=== PATIENT | male | born 1960 | race Caucasian/White ===

== ENCOUNTER 2020-05-18 11:38 | Inpatient (IN) | payer MEDICARE, MEDICAID ==
[2020-05-18] VITALS (7 sets, daily range): BP systolic 105–132; BP diastolic 69–95
[~2020-05-18] VITALS: Ht 175.3 cm; Wt 71.9 kg
[2020-05-18] MEDS ORDERED: IV NORMAL SALINE 1000ML BAG 1,000 ML IV SCH (11:49)
[2020-05-18] MEDS ORDERED: fentaNYL PF VIAL 100 MCG/2 ML VIAL IVP ONE (12:00)
[2020-05-18] MEDS ORDERED: ONDANSETRON PF 4 MG/2 ML VIAL. IVP ONE (12:00)
[2020-05-18] MEDS ORDERED: FAMOTIDINE 20 MG/2 ML VIAL IVP ONE (12:00)
--- NOTE | 2020-05-18 12:03 | PHYS DOC ---
General Adult EDM: Chief Complaint: ABDOMINAL PAIN HPI: HPI: Patient is a 59 year old male who presents with 2 weeks of off and on left chest pain, generalized sharon pain, vomiting. Patient is currently homeless. He states that he was living in an apartment but the doors are locked and he could not get in. He states he tried climbing up the side of the wall a month ago to get in and it was raining and he slipped and he fell and broke his right lower leg. He states he went to the hospital does not remember where he went and they had him in a cast and then he saw orthopedic doctor that took him out of the cast and put him in a walking boot and told him he was going to be in th at for another 2 to 3 months. Patient states eating given any pain medication and he is also having leg pain. He states that he does have crutches that he uses at times. His right lower ankle is 2-3+ swollen. Skin is pink warm and dry cap refill is less than 3 seconds. No calf tenderness with palpation. He states he is tired of being in pain and feeling sick and he wants to . Patient states he is suicidal and he has a plan of jumping off of a building or he has tried to run in front of cars in the past. When patient is asked about the quality of his pain he states it "just hurts". Patient states he has a frontal headache that comes and goes states it is throbbing. He is rating all of his pain a 10 out of 10 and denies radiation or anything making it worse or better. Patient is placed on one-to-one observation. When asked about his past medical history he states he supposed to be on medications but does not know what medications and what for. At this time patient denies visual changes, numbness or tingling, dizziness, syncope, neck pain, back pain, diarrhea, fever, shortness of breath, cough, focal weakness. Patient is moving all extremities and is alert and oriented x4. Review of Systems: Review of Systems: Constitutional: Denies fever or chills. [] Eyes: Denies change in visual acuity. [] HENT: Denies nasal congestion or sore throat. [] Respiratory: Denies cough or shortness of breath. [] Cardiovascular: Denies chest pain or edema. [] GI: Generalized abdominal pain, nausea, vomiting, denies bloody stools or diarrhea. [] : Denies dysuria. [] Musculoskeletal: Denies back pain. Right lower leg joint pain. [] Integument: Denies rash. [] Neurologic: Frontal headache, denies focal weakness or sensory changes. [] Endocrine: Denies polyuria or polydipsia. [] Lymphatic: Denies swollen glands. [] Psychiatric: Denies depression or anxiety. Suicidal ideation. [] Heart Score: HEART Score for Chest Pain: HEART Score for Chest Pain Response (Comments) Value History Slighlty/Non-Suspicious 0 ECG Normal 0 Age >45 - < 65 1 Risk Factors 1 or 2 Risk Factors 1 Troponin < Normal Limit 0 Total 2 Risk Factors: Risk Factors: DM, Current or recent (<one month) smoker, HTN, HLP, family history of CAD, obesity. Risk Scores: Score 0 - 3: 2.5% MACE over next 6 weeks - Discharge Home Score 4 - 6: 20.3% MACE over next 6 weeks - Admit for Clinical Observation Score 7 - 10: 72.7% MACE over next 6 weeks - Early Invasive Strategies Physical Exam: PE: Constitutional: Well developed, well nourished, no acute distress, non-toxic melecio earance. [] HENT: Normocephalic, atraumatic, bilateral external ears normal, oropharynx moist, no oral exudates, nose normal. [] Eyes: PERRLA, EOMI, conjunctiva normal, no discharge. [] Neck: Normal range of motion, no tenderness, supple, no stridor. [] Cardiovascular:Heart rate regular rhythm, no murmur [] Lungs & Thorax: Bilateral breath sounds clear to auscultation [] Abdomen: Bowel sounds normal, soft, no tenderness, no masses, no pulsatile masses. [] Skin: Warm, dry, no erythema, no rash. [] Back: No tenderness, no CVA tenderness. [] Extremities: No tenderness, no cyanosis, no clubbing, right ankle ROM not intact, right lower ankle 2-3+ edema. [] Neurologic: Alert and oriented X 3, normal motor function, normal sensory function, no focal deficits noted. [] Psychologic: Affect normal, judgement normal, mood normal. [] EKG: EK and read by Dr. Muhammad as sinus rhythm and no STEMI [] Radiology/Procedures: Radiology/Procedures: [] Impression: [facility] [address] [place] [address] IMAGING REPORT Signed PATIENT: LUCÍA MARIE ACCOUNT: [id number] : 1960 LOCATION: ER AGE: 59 SEX: M EXAM STATUS: REG ER ORD. PHYSICIAN: МАРИНА MEHTA APRN REASON: HEADACHE PROCEDURE: CT HEAD WO CONTRAST CT HEAD WO CONTRAST History:Headache Comparison: None. Technique: Noncontrast CT imaging was performed of the head. Exposure: One or more of the following individualized dose reduction techniques were utilized for this examination: 1. Automated exposure control 2. Adjustment of the mA and/or kV according to patient size 3. Use of iterative reconstruction technique. Findings: There has been left frontal parietal temporal craniotomy. There is thin hyperdense subdural hematoma on the left greatest in the frontal region about 3 to 4 mm maximal thickness. There is area of lower density of the left temporal parenchyma in the left middle cranial fossa. Ventricular size is within normal limits. There is no midline shift. There is mild ill-defined low-density such as of the bilateral parietal white matter. The visualized paranasal sinuses and mastoid air cells are overall aerated. Impression: 1. There is small acute/subacute subdural hematoma greatest in the left frontal region. 2. There is area of lower density of the left temporal lobe, may be sequela of previous at least subacute if not chronic infarct although other pathology in this region not excluded. 3. Mild ill-defined low-density of the supratentorial parenchyma such as of the parietal white matter is nonspecific, may be sequela of chronic microvascular ischemic disease. 4. There has been left craniotomy. Critical results were discussed with МАРИНА MEHTA at 05/18/2020 1:22 PM. Electronically signed by: David Carranza MD (05/18/2020 1:23 PM) [id number] DICTATED and SIGNED BY: DAVID CARRANZA MD DATE: 05/18/20 1323 [facility] [address] [place], [place] [id number] IMAGING REPORT Signed PATIENT: LUCÍA MARIE ACCOUNT: [id number] : 1960 LOCATION: ER AGE: 59 SEX: M EXAM STATUS: REG ER ORD. PHYSICIAN: МАРИНА MEHTA APRN REASON: abd pain, vomiting PROCEDURE: CT ABD PELV W/ IV CONTRST ONLY CT scan abdomen and pelvis with contrast 05/15/2020 CLINICAL HISTORY: Abdominal pain and vomiting. TECHNIQUE: After the intravenous administration of 75 cc of Omnipaque 300 only, contiguous, 5 mm axial sections were obtained through abdomen and pelvis. One or more of the following individualized dose reduction techniques were utilized for this study: 1. Automated exposure control. 2. Adjustment of the mA and/or kV according to patient size. 3. Use of iterative reconstruction technique. FINDINGS: Images through the lung bases demonstrate minimal dependent subsegmental atelectasis bilaterally. The liver, spleen, pancreas, adrenal glands and kidneys are within normal limits. Atherosclerotic calcification of the abdominal aorta is seen. The abdominal aorta tapers normally. The gallbladder is well-distended. No free fluid or free air is seen within the abdomen. There is no evidence of bowel obstruction. The appendix is well-visualized and is within normal limits. Images through the pelvis demonstrate the urinary bladder distended with urine. Calcifications are seen within the pelvis consistent with phleboliths. No free fluid is seen. Very mild S-shaped curvature of the thoracolumbar spine is seen. Degenerative changes are seen involving the lower thoracic and throughout the lumbar spine along with both hips. IMPRESSION: No acute abnormality is seen. Electronically signed by: Diogo Leal MD (05/18/2020 1:28 PM) [id number] DICTATED and SIGNED BY: DIOGO LEAL MD DATE: 05/18/20 1328 [facility] [address] [place] [address] IMAGING REPORT Signed PATIENT: LUCÍA MARIE ACCOUNT: [id number] : 1960 LOCATION: ER AGE: 59 SEX: M EXAM STATUS: REG ER ORD. PHYSICIAN: МАРИНА MEHTA APRN REASON: pain PROCEDURE: TIBIA FIBULA RIGHT ANKLE RIGHT 3V, FOOT RIGHT 3V, TIBIA FIBULA RIGHT History: Reason: pain / Spl. Instructions: / History: Technique: 2 views right tibia and fibula, 3 views right ankle and 3 views right foot Comparison: None. Findings: Mild knee degenerative changes. Normal alignment of the tibia and fibula. No fracture. Normal alignment of the ankle. Symmetric ankle mortise. Ankle soft tissue swelling. Ankle joint effusion. Comminuted fracture of the calcaneus with suggestion of periosteal reaction, may indicate healing. Plantar calcaneal spur. Otherwise, normal alignment of the foot. First metatarsal head bony bunion formation. Prominence of the anterior talus, can be seen with anterior ankle impingement morphology. Impression: 1. Comminuted right calcaneus fracture with regions of periosteal reaction, may indicate subacute fracture. CT can further evaluate as clinically warranted. 2. Ankle soft tissue swelling. Electronically signed by: Brandon Varghese DO (05/18/2020 1:43 PM) [id number] DICTATED and SIGNED BY: BRANDON VARGHESE DO DATE: 05/18/20 1343 [facility] [address] [place], [place] [id number] IMAGING REPORT Signed PATIENT: LUCÍA MARIE ACCOUNT: [id number] : 1960 LOCATION: ER AGE: 59 SEX: M EXAM STATUS: REG ER ORD. PHYSICIAN: МАРИНА MEHTA APRN REASON: chest pain PROCEDURE: PORTABLE CHEST 1V PORTABLE CHEST 1V History: Reason: chest pain / Spl. Instructions: / History: Comparison: None. Findings: No consolidation or pleural effusion. Normal heart size. No pneumothorax. Left upper lung calcified nodule, likely prior granulomatous disease. Internal fixation left proximal humerus fracture. Impression: 1. No acute cardiopulmonary process. Electronically signed by: Brandon Varghese DO (05/18/2020 1:32 PM) [id number] DICTATED and SIGNED BY: BRANDON VARGHESE DO DATE: 05/18/20 1332 Course & Med Decision Making: Course & Med Decision Making Pertinent Labs and Imaging studies reviewed. (See chart for details) See HPI. Abdomen is soft and nontender. Skin pink warm and dry. Afebrile. Vital signs within normal limits. Dr Gonzales nurse proactitioner Pamela states the patient should go to ICU with Neuro Checks and NPO and she will order a re-scan for in the morning. After giving CT head results I went into the room and asked the patient again if he has fallen recently. He states no. He then states well maybe I did fall and hit my head 2 weeks ago but I cannot remember. Patient is a very poor historian. Blood work unremarkable. Patient is admitted by Dr. Gann to the ICU. I have put in a nursing order for a PAT team consult when the patient is stable for suicidal ideation. [] Dragon Disclaimer: Dragon Disclaimer: This electronic medical record was generated, in whole or in part, using a voice recognition dictation system. Departure Departure Impression: Primary Impression: Subdural hematoma Additional Impression: Suicidal ideation Disposition: ADMITTED INPATIENT Admitting Physician: SHAN Condition: STABLE Justicifation of Admission Dx: Justifications for Admission: Justification of Admission Dx: Yes Comments: subdural hematoma NIHSS Stroke Scale NIH Stroke Scale: NIH Stroke Scale Response (Comments) Value Level of Consciousness: 0 Alert/Responsive 0 LOC Questions: 0 Answers both correctly 0 LOC Commands: 0 Performs both tasks 0 Best Gaze: 0 Normal 0 Visual: 0 No visual loss 0 Facial Palsy: 0 Normal, symmetrical 0 Motor - Left Arm 0 No drift 0 Motor - Right Arm 0 No drift 0 Motor - Left Leg 0 No drift 0 Motor: Right Leg 0 No drift 0 Limb Ataxia: 0 Absent 0 Sensory: 0 No loss 0 Best Language: 0 Normal 0 Dysathria: 0 Normal 0 Extinction and Inattention: 0 Normal 0 Total 0 МАРИНА MEHTA APRN May 18, 2020 12:03
[2020-05-18 12:13] LABS: BASO # 0.1 x10^3/uL (0.0-0.2); BASO % 1 % (0-3); EOS # 0.1 x10^3/uL (0.0-0.7); EOS % 2 % (0-3); HEMATOCRIT 42.2 % (39.0-53.0); HEMOGLOBIN 14.5 g/dL (13.0-17.5); LYMPH % 34 % (24-48); MEAN CORPUSCULAR HEMOGLOBIN 32 pg (25-35); MEAN CORPUSCULAR HGB CONC 34 g/dL (31-37); MEAN CORPUSCULAR VOLUME 93 fL (79-100); MONO # 0.5 x10^3/uL (0.0-1.1); MONO % 9 % (0-9); NEUT # 3.2 x10^3/uL (1.8-7.7); NEUT % 54 % (31-73); PLATELET COUNT 185 x10^3/uL (140-400); RED BLOOD COUNT 4.53 x10^6/uL (4.30-5.70); RED CELL DISTRIBUTION WIDTH 13.8 % (11.5-14.5); WHITE BLOOD COUNT 5.8 x10^3/uL (4.0-11.0)
[2020-05-18 12:29] LABS: CALCIUM 8.2 mg/dL (8.5-10.1); CREATININE 0.8 mg/dL (0.7-1.3); GFR 98.3; POTASSIUM 4.2 mmol/L (3.5-5.1)
[2020-05-18 12:35] LABS: ALBUMIN 3.4 g/dL (3.4-5.0); ALBUMIN/GLOBULIN RATIO 1.1 (1.0-1.7); TOTAL BILIRUBIN 0.2 mg/dL (0.2-1.0); TOTAL PROTEIN 6.5 g/dL (6.4-8.2)
[2020-05-18 12:39] LABS: SALIC 5.2 mg/dL (2.8-20.0)
[2020-05-18 12:40] LABS: ACETAMIN < 2 mcg/ml (10-30); ETHANOL < 10 mg/dL (0-10)
[2020-05-18] MEDS ORDERED: IOHEXOL 300 MG/ML 100ML VIAL. IV ONE (12:45)
[2020-05-18] MEDS ORDERED: CONTRAST GIVEN. MC PRN (13:00)
--- NOTE | 2020-05-18 13:26 | RAD ---
CT HEAD WO CONTRAST History:Headache Comparison: None. Technique: Noncontrast CT imaging was performed of the head. Exposure: One or more of the following individualized dose reduction techniques were utilized for this examination: 1. Automated exposure control 2. Adjustment of the mA and/or kV according to patient size 3. Use of iterative reconstruction technique. Findings: There has been left frontal parietal temporal craniotomy. There is thin hyperdense subdural hematoma on the left greatest in the frontal region about 3 to 4 mm maximal thickness. There is area of lower density of the left temporal parenchyma in the left middle cranial fossa. Ventricular size is within normal limits. There is no midline shift. There is mild ill-defined low-density such as of the bilateral parietal white matter. The visualized paranasal sinuses and mastoid air cells are overall aerated. Impression: 1. There is small acute/subacute subdural hematoma greatest in the left frontal region. 2. There is area of lower density of the left temporal lobe, may be sequela of previous at least subacute if not chronic infarct although other pathology in this region not excluded. 3. Mild ill-defined low-density of the supratentorial parenchyma such as of the parietal white matter is nonspecific, may be sequela of chronic microvascular ischemic disease. 4. There has been left craniotomy. Critical results were discussed with МАРИНА MEHTA at 05/18/2020 1:22 PM. Electronically signed by: Kevin Tompkins MD (05/18/2020 1:23 PM) [id number]
--- NOTE | 2020-05-18 13:31 | RAD ---
CT scan abdomen and pelvis with contrast 05/15/2020 CLINICAL HISTORY: Abdominal pain and vomiting. TECHNIQUE: After the intravenous administration of 75 cc of Omnipaque 300 only, contiguous, 5 mm axial sections were obtained through abdomen and pelvis. One or more of the following individualized dose reduction techniques were utilized for this study: 1. Automated exposure control. 2. Adjustment of the mA and/or kV according to patient size. 3. Use of iterative reconstruction technique. FINDINGS: Images through the lung bases demonstrate minimal dependent subsegmental atelectasis bilaterally. The liver, spleen, pancreas, adrenal glands and kidneys are within normal limits. Atherosclerotic calcification of the abdominal aorta is seen. The abdominal aorta tapers normally. The gallbladder is well-distended. No free fluid or free air is seen within the abdomen. There is no evidence of bowel obstruction. The appendix is well-visualized and is within normal limits. Images through the pelvis demonstrate the urinary bladder distended with urine. Calcifications are seen within the pelvis consistent with phleboliths. No free fluid is seen. Very mild S-shaped curvature of the thoracolumbar spine is seen. Degenerative changes are seen involving the lower thoracic and throughout the lumbar spine along with both hips. IMPRESSION: No acute abnormality is seen. Electronically signed by: Diogo Leal MD (05/18/2020 1:28 PM) [id number]
--- NOTE | 2020-05-18 13:35 | RAD ---
PORTABLE CHEST 1V History: Reason: chest pain / Spl. Instructions: / History: Comparison: None. Findings: No consolidation or pleural effusion. Normal heart size. No pneumothorax. Left upper lung calcified nodule, likely prior granulomatous disease. Internal fixation left proximal humerus fracture. Impression: 1. No acute cardiopulmonary process. Electronically signed by: Brandon Olivera DO (05/18/2020 1:32 PM) [id number]
[2020-05-18 13:43] LABS: BILIRUBIN,URINE NEGATIVE (NEG); CLARITY,URINE CLEAR; COLOR,URINE YELLOW; NITRITE,URINE NEGATIVE (NEG); PROTEIN,URINE NEGATIVE (NEG-TRACE); UROBILINOGEN,URINE 0.2 mg/dL (0.2 mg/dL)
--- NOTE | 2020-05-18 13:46 | RAD ---
ANKLE RIGHT 3V, FOOT RIGHT 3V, TIBIA FIBULA RIGHT History: Reason: pain / Spl. Instructions: / History: Technique: 2 views right tibia and fibula, 3 views right ankle and 3 views right foot Comparison: None. Findings: Mild knee degenerative changes. Normal alignment of the tibia and fibula. No fracture. Normal alignment of the ankle. Symmetric ankle mortise. Ankle soft tissue swelling. Ankle joint effusion. Comminuted fracture of the calcaneus with suggestion of periosteal reaction, may indicate healing. Plantar calcaneal spur. Otherwise, normal alignment of the foot. First metatarsal head bony bunion formation. Prominence of the anterior talus, can be seen with anterior ankle impingement morphology. Impression: 1. Comminuted right calcaneus fracture with regions of periosteal reaction, may indicate subacute fracture. CT can further evaluate as clinically warranted. 2. Ankle soft tissue swelling. Electronically signed by: Brandon Olivera DO (05/18/2020 1:43 PM) [id number]
[2020-05-18 13:55] LABS: BACTERIA,URINE FEW /HPF (0-FEW); RBC,URINE 0 /HPF (0-2); SQUAMOUS EPITHELIAL CELL,UR FEW /LPF
[2020-05-18 13:56] LABS: BARBITURATES NEG (NEG); BENZODIAZEPINES NEG (NEG); CANNABINOIDS NEG (NEG); COCAINE NEG (NEG); METHADONE NEG (NEG); OPIATES NEG (NEG); PHENCYCLIDINE NEG (NEG)
[2020-05-18 13:57] LABS: AMPHETAMINE/METHAMPHETAMINE NEG (NEG)
[2020-05-18] MEDS ORDERED: ONDANSETRON PF 4 MG/2 ML VIAL. IV PRN (14:15)
--- NOTE | 2020-05-18 16:41 | NUR ---
Pt arrived to unit at appox 1400. Pt is poor historian, does not know health history, what medications he takes, or his living arrangement. Pt has a post-it note that has his son, Brittney, phone number ([phone]) and an address of [address], [facility] [address] - pt thinks this is the address of where he is staying. Pt states he does not have access to money or food and does not think he has eaten in a few days. Pt reporting pain in rt heel, abd, and head. Pt having SI with a plan to "get a hold of" a gun and shoot himself. Pt on 1:1 obs. Will continue to monitor pt.
[2020-05-18] MEDS: IV NORMAL SALINE 1000ML BAG 1,000 ML IV SCH (16:56)
[2020-05-18] MEDS: fentaNYL PF VIAL 100 MCG/2 ML VIAL IV PRN ×2 (16:56→23:14)
--- NOTE | 2020-05-18 17:37 | PDOC1 ---
History and Physical Date of Service: DOS: DATE: 05/18/20 TIME: 17:32 Chief Complaint: Problems: (1) Suicidal ideation (2) Subdural hematoma Chief Complain: Headache Suicidal ideation History of Present Illness: HPI: This is a middle-aged male who works doing [employer] He fell about 2 months ago and suffered a right lower extremity fracture and that was casted Since then he is been doing relatively well but then fell about 2 weeks ago as well and hit his head Now is got a nausea vomiting Is got a headache He has suicidal ideation We did a CAT scan of the brain showing a subdural hematoma I discussed the case with ER physician went to meet the patient with consultation neurosurgery Past Medical/Surgical History: PMH/PSH: Benign other than the above-mentioned leg fracture 2 months ago Allergies: Allergies: Coded Allergies: No Known Drug Allergies (Unverified , 05/18/20) Family History: Family History: Hypertension Social History: Social History: He does not drink smoke or take drugs he works doing [employer] Current Medications: Current Medications Current Medications Sodium Chloride 1,000 ml @ 1,000 mls/hr Q1H IV Last administered on 05/18/20at 12:17; Start 05/18/20 at 11:49; Stop 05/18/20 at 12:48; Status DC Fentanyl Citrate (Fentanyl 2ml Vial) 50 mcg 1X ONCE IVP Last administered on 05/18/20at 12:17; Start 05/18/20 at 12:00; Stop 05/18/20 at 12:01; Status DC Ondansetron HCl (Zofran) 4 mg 1X ONCE IVP Last administered on 05/18/20at 12:17; Start 05/18/20 at 12:00; Stop 05/18/20 at 12:01; Status DC Famotidine (Pepcid Vial) 20 mg 1X ONCE IVP Last administered on 05/18/20at 12:17; Start 05/18/20 at 12:00; Stop 05/18/20 at 12:01; Status DC Iohexol (Omnipaque 300 Mg/ml) 75 ml 1X ONCE IV Last administered on 05/18/20at 13:08; Start 05/18/20 at 12:45; Stop 05/18/20 at 12:46; Status DC Info (CONTRAST GIVEN -- Rx MONITORING) 1 each PRN DAILY PRN MC SEE COMMENTS; Start 05/18/20 at 13:00; Stop 05/20/20 at 12:59 Ondansetron HCl (Zofran) 4 mg PRN Q8HRS PRN IV NAUSEA/VOMITING; Start 05/18/20 at 14:15; Stop 05/19/20 at 14:14 Fentanyl Citrate (Fentanyl 2ml Vial) 50 mcg PRN Q1HR PRN IV PAIN Last administered on 05/18/20at 16:56; Start 05/18/20 at 14:15; Stop 05/19/20 at 14:14 Sodium Chloride 1,000 ml @ 100 mls/hr Q10H IV Last administered on 05/18/20at 16:56; Start 05/18/20 at 14:01; Stop 05/19/20 at 14:00 ROS: Review of Systems Review of System REVIEW OF SYSTEMS: GENERAL: Complains of weakness SKIN: No bruising, hair changes or rashes. EYES: No blurred, double or loss of vision. NOSE AND THROAT: No history of nosebleeds, hoarseness or sore throat. HEART: No history of palpitations, chest pain or shortness of breath on exertion. LUNGS: Denies cough, hemoptysis, wheezing or shortness of breath. GASTROINTESTINAL: Complains of nausea vomiting GENITOURINARY: No history of frequency, urgency, hesitancy or nocturia. NEUROLOGIC: Complains of a headache PSYCHIATRIC: Complains of depression is suicidal ENDOCRINE: No history of heat or cold intolerance, polyuria or polydipsia. EXTREMITIES: Denies joint pain, pain on walking or stiffness. Physical Exam: Vital Signs: Vital Signs Date Time Temp Pulse Resp B/P (MAP) Pulse Ox O2 Delivery O2 Flow Rate FiO2 05/18/20 17:26 98 Room Air 05/18/20 16:05 97.4 65 116/85 (95) 97.4 05/18/20 11:45 12 Physcial Exam: GEN: Resting he awoke he seems pleasant the nurse states he has been expressing suicidal ideation HEENT: Normal cephalic, atraumatic, external auditory canals are patent EYES: Extraocular muscles are intact, pupil are equally round and reactive to light and accommodation MUSCULOSKELETAL: Well developed , well nourished, good range of motion ENDOCRINE: No thyromegaly was palpated LYMPHATICS: No cervical chain or axillary nodes were noted HEMATOPOIETIC: No bruising NECK: Supple, no JVD, no thyromegaly was noted LUNGS: Clear to auscultation in all lung jordan without rhonchi or wheezing HEART: RRR, S!, S2 present. Peripheral pulses intact, no obvious murmurs noted ABDOMEN: Soft, nontender. Positive bowel sounds, no organomegaly, normal bowel sounds EXTREMITIES: Without clubbing, cyanosis, or edema. Pedal pulses intact. N egative Homans sign NEUROLOGIC: Little anxious but he is moving all extremities PSYCHIATRIC: A little anxious but pleasant SKIN: No ulcerations or rashes, good skin turgor, no jaundice VASCULAR: Good capillary refill, neurovascular bundle appears to be intact Labs: Labs: Laboratory Tests Test 05/18/20 12:00 05/18/20 13:26 05/18/20 14:25 White Blood Count 5.8 x10^3/uL (4.0-11.0) Red Blood Count 4.53 x10^6/uL (4.30-5.70) Hemoglobin 14.5 g/dL (13.0-17.5) Hematocrit 42.2 % (39.0-53.0) Mean Corpuscular Volume 93 fL (79-100) Mean Corpuscular Hemoglobin 32 pg (25-35) Mean Corpuscular Hemoglobin Concent 34 g/dL (31-37) Red Cell Distribution Width 13.8 % (11.5-14.5) Platelet Count 185 x10^3/uL (140-400) Neutrophils (%) (Auto) 54 % (31-73) Lymphocytes (%) (Auto) 34 % (24-48) Monocytes (%) (Auto) 9 % (0-9) Eosinophils (%) (Auto) 2 % (0-3) Basophils (%) (Auto) 1 % (0-3) Neutrophils # (Auto) 3.2 x10^3/uL (1.8-7.7) Lymphocytes # (Auto) 2.0 x10^3/uL (1.0-4.8) Monocytes # (Auto) 0.5 x10^3/uL (0.0-1.1) Eosinophils # (Auto) 0.1 x10^3/uL (0.0-0.7) Basophils # (Auto) 0.1 x10^3/uL (0.0-0.2) Prothrombin Time 12.0 SEC (11.7-14.0) Prothromb Time International Ratio 0.9 (0.8-1.1) Sodium Level 140 mmol/L (136-145) Potassium Level 4.2 mmol/L (3.5-5.1) Chloride Level 107 mmol/L (98-107) Carbon Dioxide Level 28 mmol/L (21-32) Anion Gap 5 (6-14) Blood Urea Nitrogen 15 mg/dL (8-26) Creatinine 0.8 mg/dL (0.7-1.3) Estimated GFR (Cockcroft-Gault) 98.3 BUN/Creatinine Ratio 19 (6-20) Glucose Level 103 mg/dL (70-99) Calcium Level 8.2 mg/dL (8.5-10.1) Total Bilirubin 0.2 mg/dL (0.2-1.0) Aspartate Amino Transf (AST/SGOT) 30 U/L (15-37) Alanine Aminotransferase (ALT/SGPT) 43 U/L (16-63) Alkaline Phosphatase 95 U/L (46-116) Troponin I Quantitative < 0.017 ng/mL (0.000-0.055) Total Protein 6.5 g/dL (6.4-8.2) Albumin 3.4 g/dL (3.4-5.0) Albumin/Globulin Ratio 1.1 (1.0-1.7) Lipase 156 U/L (73-393) Salicylates Level 5.2 mg/dL (2.8-20.0) Salicylate Last Dose Date Unknown Salicylate Last Dose Time Unknown Acetaminophen Level < 2 mcg/ml (10-30) Acetaminophen Last Dose Date Unknown Acetaminophen Last Dose Time Unknown Ethyl Alcohol Level < 10 mg/dL (0-10) Urine Collection Type Unknown Urine Color Yellow Urine Clarity Clear Urine pH 6.0 (<5.0-8.0) Urine Specific [place] >=1.030 (1.000-1.030) Urine Protein Negative mg/dL (NEG-TRACE) Urine Glucose (UA) Negative mg/dL (NEG) Urine Ketones (Stick) Negative mg/dL (NEG) Urine Blood Negative (NEG) Urine Nitrite Negative (NEG) Urine Bilirubin Negative (NEG) Urine Urobilinogen Dipstick 0.2 mg/dL (0.2 mg/dL) Urine Leukocyte Esterase Negative (NEG) Urine RBC 0 /HPF (0-2) Urine WBC 1-4 /HPF (0-4) Urine Squamous Epithelial Cells Few /LPF Urine Bacteria Few /HPF (0-FEW) Urine Opiates Screen Neg (NEG) Urine Methadone Screen Neg (NEG) Urine Barbiturates Neg (NEG) Urine Phencyclidine Screen Neg (NEG) Urine Amphetamine/Methamphetamine Neg (NEG) Urine Benzodiazepines Screen Neg (NEG) Urine Cocaine Screen Neg (NEG) Urine Cannabinoids Screen Neg (NEG) Urine Ethyl Alcohol Neg (NEG) SARS-CoV-2 Antigen (Rapid) Negative (NEGATIVE) Laboratory Tests Test 05/18/20 12:00 05/18/20 13:26 05/18/20 14:25 White Blood Count 5.8 x10^3/uL (4.0-11.0) Red Blood Count 4.53 x10^6/uL (4.30-5.70) Hemoglobin 14.5 g/dL (13.0-17.5) Hematocrit 42.2 % (39.0-53.0) Mean Corpuscular Volume 93 fL (79-100) Mean Corpuscular Hemoglobin 32 pg (25-35) Mean Corpuscular Hemoglobin Concent 34 g/dL (31-37) Red Cell Distribution Width 13.8 % (11.5-14.5) Platelet Count 185 x10^3/uL (140-400) Neutrophils (%) (Auto) 54 % (31-73) Lymphocytes (%) (Auto) 34 % (24-48) Monocytes (%) (Auto) 9 % (0-9) Eosinophils (%) (Auto) 2 % (0-3) Basophils (%) (Auto) 1 % (0-3) Neutrophils # (Auto) 3.2 x10^3/uL (1.8-7.7) Lymphocytes # (Auto) 2.0 x10^3/uL (1.0-4.8) Monocytes # (Auto) 0.5 x10^3/uL (0.0-1.1) Eosinophils # (Auto) 0.1 x10^3/uL (0.0-0.7) Basophils # (Auto) 0.1 x10^3/uL (0.0-0.2) Prothrombin Time 12.0 SEC (11.7-14.0) Prothromb Time International Ratio 0.9 (0.8-1.1) Sodium Level 140 mmol/L (136-145) Potassium Level 4.2 mmol/L (3.5-5.1) Chloride Level 107 mmol/L (98-107) Carbon Dioxide Level 28 mmol/L (21-32) Anion Gap 5 (6-14) Blood Urea Nitrogen 15 mg/dL (8-26) Creatinine 0.8 mg/dL (0.7-1.3) Estimated GFR (Cockcroft-Gault) 98.3 BUN/Creatinine Ratio 19 (6-20) Glucose Level 103 mg/dL (70-99) Calcium Level 8.2 mg/dL (8.5-10.1) Total Bilirubin 0.2 mg/dL (0.2-1.0) Aspartate Amino Transf (AST/SGOT) 30 U/L (15-37) Alanine Aminotransferase (ALT/SGPT) 43 U/L (16-63) Alkaline Phosphatase 95 U/L (46-116) Troponin I Quantitative < 0.017 ng/mL (0.000-0.055) Total Protein 6.5 g/dL (6.4-8.2) Albumin 3.4 g/dL (3.4-5.0) Albumin/Globulin Ratio 1.1 (1.0-1.7) Lipase 156 U/L (73-393) Salicylates Level 5.2 mg/dL (2.8-20.0) Salicylate Last Dose Date Unknown Salicylate Last Dose Time Unknown Acetaminophen Level < 2 mcg/ml (10-30) Acetaminophen Last Dose Date Unknown Acetaminophen Last Dose Time Unknown Ethyl Alcohol Level < 10 mg/dL (0-10) Urine Collection Type Unknown Urine Color Yellow Urine Clarity Clear Urine pH 6.0 (<5.0-8.0) Urine Specific [place] >=1.030 (1.000-1.030) Urine Protein Negative mg/dL (NEG-TRACE) Urine Glucose (UA) Negative mg/dL (NEG) Urine Ketones (Stick) Negative mg/dL (NEG) Urine Blood Negative (NEG) Urine Nitrite Negative (NEG) Urine Bilirubin Negative (NEG) Urine Urobilinogen Dipstick 0.2 mg/dL (0.2 mg/dL) Urine Leukocyte Esterase Negative (NEG) Urine RBC 0 /HPF (0-2) Urine WBC 1-4 /HPF (0-4) Urine Squamous Epithelial Cells Few /LPF Urine Bacteria Few /HPF (0-FEW) Urine Opiates Screen Neg (NEG) Urine Methadone Screen Neg (NEG) Urine Barbiturates Neg (NEG) Urine Phencyclidine Screen Neg (NEG) Urine Amphetamine/Methamphetamine Neg (NEG) Urine Benzodiazepines Screen Neg (NEG) Urine Cocaine Screen Neg (NEG) Urine Cannabinoids Screen Neg (NEG) Urine Ethyl Alcohol Neg (NEG) SARS-CoV-2 Antigen (Rapid) Negative (NEGATIVE) Assessment/Plan Assessment/Plan Subdural hematoma Suicidal ideation Plan ICU monitoring Consult neurosurgery Home meds DVT prophylaxis Full code Seizure precautions Long-term prognosis guarded Consult the psychiatric assessment team regarding the suicidal ideations although I suspect that will resolve when the subdural hematoma resolves Justicifation of Admission Dx: Justifications for Admission: Justification of Admission Dx: N/A Acute Hemorrhagic Stroke: Acute Hemorrhagic Stroke LINDSAY SALVADOR III DO May 18, 2020 17:37
--- NOTE | 2020-05-18 20:13 | NUR ---
Nursing note: Pt resting comfortably in bed. 1:1 observation for suicide ideation. Only complaint was that he is hungry and hasnt ate in 2 days. Spoke with Pamela from Neurosurgery and said it was ok to feed patient tonight but npo after. Instructed patient and given a boxed meal.
[2020-05-19] VITALS (17 sets, daily range): BP systolic 95–139; BP diastolic 53–87
[2020-05-19] MEDS: IV NORMAL SALINE 1000ML BAG 1,000 ML IV SCH (01:18)
--- NOTE | 2020-05-19 04:53 | EKG ---
[facility] [address] [place] [address] Test Date: 2020-05-18 Test Time: 11:49:50 Pat Name: LUCÍA MARIE Department: Room: Gender: M Medical Research Associate: : 1960 Requested By: МАРИНА MEHTA Order Number: [id number] Reading MD: Measurements Intervals [place] Rate: 70 P: 53 MO: 154 QRS: -61 QRSD: 104 T: 30 QT: 386 QTc: 420 Interpretive Statements SINUS RHYTHM ATRIAL PREMATURE COMPLEX(ES) ABNORMAL LEFT AXIS DEVIATION LEFT ANTERIOR FASCICULAR BLOCK ABNORMAL ECG RI6.02 No previous ECG available for comparison
[2020-05-19] MEDS ORDERED: ZIPRASIDONE IM 20 MG VIAL. IM PRN (10:00)
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
[2020-05-19] MEDS: HALOPERIDOL LACTATE 5 MG/ML VIAL. IVP PRN ×2 (10:24→20:15)
--- NOTE | 2020-05-19 10:40 | NUR ---
Pt is now back in bed and sleeping, Pt dressed in hospital gown and personal items removed from the room and placed behind the nurses desk. Head CT completed as well, awaiting results.
--- NOTE | 2020-05-19 11:22 | RAD ---
CT HEAD WO CONTRAST History: Reason: f/u SDH / Spl. Instructions: / History: Comparison: May 18, 2020 Technique: Noncontrast CT imaging was performed of the head. Exposure: One or more of the following individualized dose reduction techniques were utilized for this examination: 1. Automated exposure control 2. Adjustment of the mA and/or kV according to patient size 3. Use of iterative reconstruction technique. Findings: Stable left cerebral convexity small subdural hematoma measures 4 mm in maximal thickness. No midline shift. No hydrocephalus. Prior left-sided craniotomy. Encephalomalacia within the left temporal lobe. Mild foci of decreased attenuation within the hemispheric white matter, most often due to chronic microvascular ischemia. Imaged orbits are unremarkable. Imaged paranasal sinuses and mastoid air cells are clear. No acute calvarial fracture. Impression: 1. Stable left cerebral convexity small subdural hematoma. Electronically signed by: Brandon Olivera DO (05/19/2020 11:19 AM) [id number]
--- NOTE | 2020-05-19 11:44 | NUR ---
SS following for discharge planning. SS reviewed pt chart and discussed with pt RN. Pt is from home and is currently on room air. SS notified that pt is SI and has a plan. PAT team saw pt last night. Khai from PAT team saw today. Pt has TBI and continues to have a plan. COVID19 negative. Dr. Belcher consulted and requesting 72 hour hold be placed. SS contacted [facility] to initiate 72 hour hold. SS currently awaiting further communication from [facility]. Dr. Belcher reported that he would see pt later this afternoon. Pt not medically stable for discharge at this time. SS will continue to follow for discharge planning.
--- NOTE | 2020-05-19 11:50 | PDOC ---
[employer] PROGRESS NOTE Date of Service DOS: DATE: 05/19/20 TIME: 11:47 Chief Complaint Chief Complaint Subdural hematoma Suicidal ideation History of Present Illness History of Present Illness 05/19/2020 Patient is seen and examined Patient got combative and had security officers present Charts reviewed Discussed with RN Vitals/I&O Vitals/I&O: Vital Signs Date Time Temp Pulse Resp B/P (MAP) Pulse Ox O2 Delivery O2 Flow Rate FiO2 05/19/20 09:04 62 107/81 (90) 98 Room Air 05/19/20 07:00 98.2 20 98.2 I & O 05/18/20 05/18/20 05/19/20 15:00 23:00 07:00 Intake Total 1000 ml Output Total 1350 ml 400 ml Balance -350 ml -400 ml Physical Exam General: Alert, mild distress Heart: Regular rate, Normal S1, Normal S2, No murmurs Lungs: Clear Abdomen: Normal bowel sounds, No hepatosplenomegaly, No masses Extremities: No clubbing, No cyanosis, Normal pulses Skin: No significant lesion Labs Labs: Laboratory Tests Test 05/18/20 12:00 05/18/20 13:26 05/18/20 14:25 White Blood Count 5.8 x10^3/uL (4.0-11.0) Red Blood Count 4.53 x10^6/uL (4.30-5.70) Hemoglobin 14.5 g/dL (13.0-17.5) Hematocrit 42.2 % (39.0-53.0) Mean Corpuscular Volume 93 fL (79-100) Mean Corpuscular Hemoglobin 32 pg (25-35) Mean Corpuscular Hemoglobin Concent 34 g/dL (31-37) Red Cell Distribution Width 13.8 % (11.5-14.5) Platelet Count 185 x10^3/uL (140-400) Neutrophils (%) (Auto) 54 % (31-73) Lymphocytes (%) (Auto) 34 % (24-48) Monocytes (%) (Auto) 9 % (0-9) Eosinophils (%) (Auto) 2 % (0-3) Basophils (%) (Auto) 1 % (0-3) Neutrophils # (Auto) 3.2 x10^3/uL (1.8-7.7) Lymphocytes # (Auto) 2.0 x10^3/uL (1.0-4.8) Monocytes # (Auto) 0.5 x10^3/uL (0.0-1.1) Eosinophils # (Auto) 0.1 x10^3/uL (0.0-0.7) Basophils # (Auto) 0.1 x10^3/uL (0.0-0.2) Prothrombin Time 12.0 SEC (11.7-14.0) Prothromb Time International Ratio 0.9 (0.8-1.1) Sodium Level 140 mmol/L (136-145) Potassium Level 4.2 mmol/L (3.5-5.1) Chloride Level 107 mmol/L (98-107) Carbon Dioxide Level 28 mmol/L (21-32) Anion Gap 5 (6-14) Blood Urea Nitrogen 15 mg/dL (8-26) Creatinine 0.8 mg/dL (0.7-1.3) Estimated GFR (Cockcroft-Gault) 98.3 BUN/Creatinine Ratio 19 (6-20) Glucose Level 103 mg/dL (70-99) Calcium Level 8.2 mg/dL (8.5-10.1) Total Bilirubin 0.2 mg/dL (0.2-1.0) Aspartate Amino Transf (AST/SGOT) 30 U/L (15-37) Alanine Aminotransferase (ALT/SGPT) 43 U/L (16-63) Alkaline Phosphatase 95 U/L (46-116) Troponin I Quantitative < 0.017 ng/mL (0.000-0.055) Total Protein 6.5 g/dL (6.4-8.2) Albumin 3.4 g/dL (3.4-5.0) Albumin/Globulin Ratio 1.1 (1.0-1.7) Lipase 156 U/L (73-393) Salicylates Level 5.2 mg/dL (2.8-20.0) Salicylate Last Dose Date Unknown Salicylate Last Dose Time Unknown Acetaminophen Level < 2 mcg/ml (10-30) Acetaminophen Last Dose Date Unknown Acetaminophen Last Dose Time Unknown Ethyl Alcohol Level < 10 mg/dL (0-10) Urine Collection Type Unknown Urine Color Yellow Urine Clarity Clear Urine pH 6.0 (<5.0-8.0) Urine Specific [place] >=1.030 (1.000-1.030) Urine Protein Negative mg/dL (NEG-TRACE) Urine Glucose (UA) Negative mg/dL (NEG) Urine Ketones (Stick) Negative mg/dL (NEG) Urine Blood Negative (NEG) Urine Nitrite Negative (NEG) Urine Bilirubin Negative (NEG) Urine Urobilinogen Dipstick 0.2 mg/dL (0.2 mg/dL) Urine Leukocyte Esterase Negative (NEG) Urine RBC 0 /HPF (0-2) Urine WBC 1-4 /HPF (0-4) Urine Squamous Epithelial Cells Few /LPF Urine Bacteria Few /HPF (0-FEW) Urine Opiates Screen Neg (NEG) Urine Methadone Screen Neg (NEG) Urine Barbiturates Neg (NEG) Urine Phencyclidine Screen Neg (NEG) Urine Amphetamine/Methamphetamine Neg (NEG) Urine Benzodiazepines Screen Neg (NEG) Urine Cocaine Screen Neg (NEG) Urine Cannabinoids Screen Neg (NEG) Urine Ethyl Alcohol Neg (NEG) SARS-CoV-2 Antigen (Rapid) Negative (NEGATIVE) Assessment and Plan Assessmemt and Plan Problems Medical Problems: (1) Subdural hematoma Status: Acute (2) Suicidal ideation Status: Acute Assessment Subdural hematoma Suicidal ideation Plan ICU monitoring Repeat CT Home meds DVT prophylaxis Full code Seizure precautions Appreciate subspecialist input Comment Review of Relevant I have reviewed the following items alexandra (where applicable) has been applied. Medications: Current Medications Medications (Trade) Dose Ordered Sig/Holly Route PRN Reason Start Time Stop Time Status Last Admin Dose Admin Sodium Chloride 1,000 ml @ 1,000 mls/hr Q1H IV 05/18/20 11:49 05/18/20 12:48 DC 05/18/20 12:17 Fentanyl Citrate (Fentanyl 2ml Vial) 50 mcg 1X ONCE IVP 05/18/20 12:00 05/18/20 12:01 DC 05/18/20 12:17 Ondansetron HCl (Zofran) 4 mg 1X ONCE IVP 05/18/20 12:00 05/18/20 12:01 DC 05/18/20 12:17 Famotidine (Pepcid Vial) 20 mg 1X ONCE IVP 05/18/20 12:00 05/18/20 12:01 DC 05/18/20 12:17 Iohexol (Omnipaque 300 Mg/ml) 75 ml 1X ONCE IV 05/18/20 12:45 05/18/20 12:46 DC 05/18/20 13:08 Fentanyl Citrate (Fentanyl 2ml Vial) 50 mcg PRN Q1HR PRN IV PAIN 05/18/20 14:15 05/19/20 14:14 05/18/20 23:14 Sodium Chloride 1,000 ml @ 100 mls/hr Q10H IV 05/18/20 14:01 05/19/20 14:00 05/19/20 01:18 Lorazepam (Ativan Inj) 2 mg PRN Q2HRS PRN IVP ANXIETY / AGITATION 05/19/20 10:00 05/19/20 10:24 Haloperidol Lactate (Haldol Inj) 5 mg PRN Q8HRS PRN IVP AGITATION 05/19/20 10:00 05/19/20 10:24 Justicifation of Admission Dx: Justifications for Admission: Justification of Admission Dx: N/A Acute Hemorrhagic Stroke: Acute Hemorrhagic Stroke LINDSAY SALVADOR III DO May 19, 2020 11:50
--- NOTE | 2020-05-19 13:04 | PDOC2 ---
CARDIAC CONSULT DATE OF CONSULT Date of Consult DATE: 05/19/20 TIME: 0950 REASON FOR CONSULT Reason for Consult: Chest pain REFERRING PHYSICIAN Referring Physician: Mima SOURCE Source: Chart review, Patient HISTORY OF PRESENT ILLNESS HISTORY OF PRESENT ILLNESS This is a 59 yo male admitted for complains of headache, chest pain. Reports of throbbing bilateral MORIN with no focal neuro symptoms but complains of nausea that started about a week ago. He had some chest burning that started 2 days later. No radiating discomfort but also had some discomfort to right limb. No SOA or palpitations but has had episodes of dizziness. He did fall from high elevation in 03/2020 sustaining right ankle fracture treated at [facility] He has no hx of CAD and kept on telling he is healthy. He used take medications that he could not remember. He is currently homeless and complains that someone has stolen his disability debit card. He accused of people stealing from him and has not gotten any help from his 3 children. One of his son was helping him but stopped doing it, unclear details but said does not want to help him anymore. He has hx of failed suicide attempt jumping in front of cars x2 and actually had TBI in the past. Presently he is depressed and wants to end his life by again jumping in front of a vehicle. He does have any chest pain currently. PAST MEDICAL HISTORY Pulmonary: COPD CENTRAL NERVOUS SYSTEM: Dementia (neurocognitive disorder), Other (TBI) GI: No pertinent hx Heme/Onc: No pertinent hx Hepatobiliary: Hep A/B/C (C) Psych: Other (suicidal attempts) Musculoskeletal: Osteoarthritis, Other (cervical stenosis; right ankle fracture) Rheumatologic: No pertinent hx Infectious disease: No pertinent hx ENT: No pertinent hx Renal/: No pertinent hx Endocrine: No pertinent hx Dermatology: No pertinent hx PAST SURGICAL HISTORY Past Surgical History: Other (ORIF right humerus 10/2019) FAMILY HISTORY Family History: Family History Unknown SOCIAL HISTORY Smoke: 1 pack per day (>40 yrs) ALCOHOL: occassional Drugs: Crystal meth Lives: Alone CURRENT MEDICATIONS CURRENT MEDICATIONS Current Medications Medications (Trade) Dose Ordered Sig/Holly Route PRN Reason Start Time Stop Time Status Last Admin Dose Admin Fentanyl Citrate (Fentanyl 2ml Vial) 50 mcg PRN Q1HR PRN IV PAIN 05/18/20 14:15 05/19/20 14:14 8/10/20 23:14 Sodium Chloride 1,000 ml @ 100 mls/hr Q10H IV 05/18/20 14:01 05/19/20 14:00 05/19/20 01:18 Lorazepam (Ativan Inj) 2 mg PRN Q2HRS PRN IVP ANXIETY / AGITATION 05/19/20 10:00 05/19/20 10:24 Haloperidol Lactate (Haldol Inj) 5 mg PRN Q8HRS PRN IVP AGITATION 05/19/20 10:00 05/19/20 10:24 ALLERGIES ALLERGIES: Coded Allergies: No Known Drug Allergies (Unverified , 05/18/20) ROS Review of System 14 point ROS evaluated with pertinent positives noted per HPI PHYSICAL EXAM General: Alert, Oriented X3, Cooperative, No acute distress HEENT: Atraumatic, Mucous membr. moist/pink Lungs: Clear to auscultation Heart: Regular rate (SR), Normal S1, Normal S2, No murmurs Abdomen: Soft, No tenderness Extremities: No cyanosis, No edema Skin: No breakdown, No significant lesion Neuro: Normal speech, Sensation intact Psych/Mental Status: Other (SI) MUSCULOSKELETAL: Osteoarthritic changes both hands VITALS/I&O VITALS/I&O: Vital Signs Date Time Temp Pulse Resp B/P (MAP) Pulse Ox O2 Delivery O2 Flow Rate FiO2 05/19/20 12:00 Room Air 05/19/20 09:04 62 107/81 (90) 98 05/19/20 07:00 98.2 20 98.2 I & O 05/18/20 05/18/20 05/19/20 15:00 23:00 07:00 Intake Total 1000 ml Output Total 1350 ml 400 ml Balance -350 ml -400 ml LABS Lab: Laboratory Tests Test 05/18/20 13:26 05/18/20 14:25 Urine Collection Type Unknown Urine Color Yellow Urine Clarity Clear Urine pH 6.0 (<5.0-8.0) Urine Specific [place] >=1.030 (1.000-1.030) Urine Protein Negative mg/dL (NEG-TRACE) Urine Glucose (UA) Negative mg/dL (NEG) Urine Ketones (Stick) Negative mg/dL (NEG) Urine Blood Negative (NEG) Urine Nitrite Negative (NEG) Urine Bilirubin Negative (NEG) Urine Urobilinogen Dipstick 0.2 mg/dL (0.2 mg/dL) Urine Leukocyte Esterase Negative (NEG) Urine RBC 0 /HPF (0-2) Urine WBC 1-4 /HPF (0-4) Urine Squamous Epithelial Cells Few /LPF Urine Bacteria Few /HPF (0-FEW) Urine Opiates Screen Neg (NEG) Urine Methadone Screen Neg (NEG) Urine Barbiturates Neg (NEG) Urine Phencyclidine Screen Neg (NEG) Urine Amphetamine/Methamphetamine Neg (NEG) Urine Benzodiazepines Screen Neg (NEG) Urine Cocaine Screen Neg (NEG) Urine Cannabinoids Screen Neg (NEG) Urine Ethyl Alcohol Neg (NEG) SARS-CoV-2 Antigen (Rapid) Negative (NEGATIVE) IMAGES IMAGES IMPRESSION CTA chest 11/08/2019 [facility] 1. No evidence of acute pulmonary embolism. 2. Consolidation within the left lower lobe and dependent left upper lobe, most compatible with pneumonia. Given secretions within the left mainstem bronchus, this may be on the basis of aspiration. 3. Mild cardiomegaly and at least mild coronary artery calcifications. 4. Mild emphysema. Minimal subpleural nodularity of the lower anterior left upper lobe, which is nonspecific and may represent scarring. Consider follow-up CT chest in 6-12 months to reevaluate this abnormality. 5. Postoperative changes of recent ORIF of comminuted left proximal humerus fracture. Healing anterior left sixth rib fracture. ECHOCARDIOGRAM ECHOCARDIOGRAM 11/08/2019 [facility] Chamber sizes and wall thickness are normal Right ventricular function is normal Normal left ventricular systolic function, with an ejection fraction estimated at 60% Normal diastolic function No hemodynamically significant valvular abnormalities Pulmonary artery pressure is estimated at 28 mmHg ASSESSMENT/PLAN ASSESSMENT/PLAN 1. Atypical chest pain: possibly GI. Doubt ACS 2. MORIN with left cerebral small subdural hematoma with prior traumatic fall (right ankle fracture) 3. Depression with SI with plan: jump in front of vehicle x2 in the past and wanting to do it again 4. Homelessness 5. COPD with Tobaccoism 6. Abnormal EKG: SR with IVCD otherwise no acute changes byt comparison and no s ignificant arrhythmias overnight. 7. Opioid seeking behavior 8. Hx of TBI with neurocognitive disorder Recommendations 1. Psych consult. Start PPI 2. Supportive care. Need counselling referral, SS. 3. Smoking cessation 4. Nothing further cardiac orona WILFREDO GALEANA APRN May 19, 2020 13:04
--- NOTE | 2020-05-19 15:07 | PDOC ---
Provider Note Provider Note Patient seen and examined [id number] consulted for SDH exam- awakens to voice, confused to place and time, follows commands, KUMAR, pupils equal CT with left cerebral convexity small subdural hematoma measures, stable on follow up CT ok to transfer out of ICU, ok to feed Justicifation of Admission Dx: Justifications for Admission: Justification of Admission Dx: N/A Acute Hemorrhagic Stroke: Acute Hemorrhagic Stroke JAQUAN VINSON MD May 19, 2020 15:06
--- NOTE | 2020-05-19 17:59 | NUR ---
End of shift: Pt has been sleeping in bed without complaints or incidents. Medicated x2 with Ativan and x1 with Haldol per orders. Pt remains on 1:1 status.
[2020-05-19] MEDS: NICOTINE 14MG PATCH. TD SCH (20:01)
--- NOTE | 2020-05-19 20:29 | PDOC1 ---
History & Psych Evaluation Date of Service: DOS: DATE: 05/19/20 TIME: 20:13 Source: Source: Caregiver, Chart review, Patient Identification: Identification He is a 59-year-old gentleman with history of prior suicidal attempt admitted with history of fall. Chief Complaint: Chief Complaint Agitation, suicidal ideation, irritability History of Present Illness: HPI: He is a 59-year-old gentleman who suffered right lower extremity fractures following a fall 2 months ago. 2 weeks ago he had another fall and hit his head found to have subdural hematoma. In addition to that he expressed suicidal ideation. Upon interview he appears dysphoric, irritable, and avoiding eye contact. He appears minimally interactive, with monosyllabic answers. Stating, nobody is helping him with food or anything. Additionally, he is referring to rehab facility where he was. Stating, people over there were stealing his money buying drugs and alcohol for themselves. They were not giving him appropriate treatment. He states he is feeling depressed and anxious as he is not feeling himself not getting proper treatment, food, sleep, and rest. Furthermore, he does not have his family mother and sister around. Presently, he denies suicidal or homicidal thoughts. However, earlier he was suicidal wanting to leave the hospital AGAINST MEDICAL ADVICE but put on hold. can worker will initiate involuntary commitment. He has history of previous suicidal attempts. Past Psychiatric History: He has history of previous suicidal attempts. Previous mental health diagnosis is not clear due to patient factor and uncooperation with the interview. Past Medical History: Please see medical chart for details Family History: Denies family history of psychiatric illness. Social History: Social History: Stating, he lives with his girlfriend and . Works in double shifts does [employer]. Denies history of illicit substance use Current Medications: Current Medications Current Medications Medications (Trade) Dose Ordered Sig/Holly Start Time Stop Time Status Last Admin Dose Admin Famotidine (Pepcid Vial) 20 mg 1X ONCE 05/18/20 12:00 05/18/20 12:01 DC 05/18/20 12:17 20 MG Fentanyl Citrate (Fentanyl 2ml Vial) 50 mcg PRN Q1HR PRN 05/18/20 14:15 05/19/20 14:14 DC 05/18/20 23:14 50 MCG Haloperidol Lactate (Haldol Inj) 5 mg PRN Q8HRS PRN 05/19/20 10:00 05/19/20 10:24 5 MG Info (CONTRAST GIVEN -- Rx MONITORING) 1 each PRN DAILY PRN 05/18/20 13:00 05/20/20 12:59 Iohexol (Omnipaque 300 Mg/ml) 75 ml 1X ONCE 05/18/20 12:45 05/18/20 12:46 DC 05/18/20 13:08 75 ML Lorazepam (Ativan Inj) 2 mg PRN Q2HRS PRN 05/19/20 10:00 05/19/20 15:42 2 MG Nicotine (Nicoderm Cq 14mg) 1 patch DAILY 05/19/20 20:00 05/19/20 20:01 1 PATCH Ondansetron HCl (Zofran) 4 mg PRN Q8HRS PRN 05/18/20 14:15 05/19/20 14:14 DC Pantoprazole Sodium (Protonix) 40 mg DAILYAC 05/20/20 07:30 Risperidone (RisperDAL) 1 mg QHS 05/19/20 21:00 05/19/20 20:01 1 MG Sodium Chloride 1,000 ml @ 100 mls/hr Q10H 05/18/20 14:01 05/19/20 14:00 DC 05/19/20 01:18 100 MLS/HR Ziprasidone (Geodon Im) 20 mg 1X PRN 05/19/20 10:00 05/20/20 09:59 Allergies: Allergies: Coded Allergies: No Known Drug Allergies (Unverified , 05/18/20) Mental Status Examination: Mental Status Examination gentleman appears his stated age Not very cooperative with interview Disoriented Thought processes concrete Denies suicidal or homicidal thoughts Denies auditory or visual hallucinations No abnormal perception noted Mood is depressed and anxious Affect is dysphoric Insight is limited Judgment is limited Impulse control is limited Attention span and concentration poor Recent memory impaired Remote memory intact ROS: 14 point review of system is otherwise negative except for stated above. Physical Exam: Refer to Physician's note. PHOTO OPTICS TECHNICIAN: No focal deficit MSK: No EPS, TDK, or abnormal involuntary movements Vitals: Vitals Vital Signs Date Time Temp Pulse Resp B/P (MAP) Pulse Ox O2 Delivery O2 Flow Rate FiO2 05/19/20 19:30 97.5 75 18 108/70 (83) 98 Room Air 97.5 Labs: Labs Laboratory Tests Test 05/18/20 12:00 05/18/20 13:26 05/18/20 14:25 05/18/20 14:30 White Blood Count 5.8 x10^3/uL (4.0-11.0) Red Blood Count 4.53 x10^6/uL (4.30-5.70) Hemoglobin 14.5 g/dL (13.0-17.5) Hematocrit 42.2 % (39.0-53.0) Mean Corpuscular Volume 93 fL (79-100) Mean Corpuscular Hemoglobin 32 pg (25-35) Mean Corpuscular Hemoglobin Concent 34 g/dL (31-37) Red Cell Distribution Width 13.8 % (11.5-14.5) Platelet Count 185 x10^3/uL (140-400) Neutrophils (%) (Auto) 54 % (31-73) Lymphocytes (%) (Auto) 34 % (24-48) Monocytes (%) (Auto) 9 % (0-9) Eosinophils (%) (Auto) 2 % (0-3) Basophils (%) (Auto) 1 % (0-3) Neutrophils # (Auto) 3.2 x10^3/uL (1.8-7.7) Lymphocytes # (Auto) 2.0 x10^3/uL (1.0-4.8) Monocytes # (Auto) 0.5 x10^3/uL (0.0-1.1) Eosinophils # (Auto) 0.1 x10^3/uL (0.0-0.7) Basophils # (Auto) 0.1 x10^3/uL (0.0-0.2) Prothrombin Time 12.0 SEC (11.7-14.0) Prothromb Time International Ratio 0.9 (0.8-1.1) Sodium Level 140 mmol/L (136-145) Potassium Level 4.2 mmol/L (3.5-5.1) Chloride Level 107 mmol/L (98-107) Carbon Dioxide Level 28 mmol/L (21-32) Anion Gap 5 (6-14) Blood Urea Nitrogen 15 mg/dL (8-26) Creatinine 0.8 mg/dL (0.7-1.3) Estimated GFR (Cockcroft-Gault) 98.3 BUN/Creatinine Ratio 19 (6-20) Glucose Level 103 mg/dL (70-99) Calcium Level 8.2 mg/dL (8.5-10.1) Total Bilirubin 0.2 mg/dL (0.2-1.0) Aspartate Amino Transf (AST/SGOT) 30 U/L (15-37) Alanine Aminotransferase (ALT/SGPT) 43 U/L (16-63) Alkaline Phosphatase 95 U/L (46-116) Troponin I Quantitative < 0.017 ng/mL (0.000-0.055) Total Protein 6.5 g/dL (6.4-8.2) Albumin 3.4 g/dL (3.4-5.0) Albumin/Globulin Ratio 1.1 (1.0-1.7) Lipase 156 U/L (73-393) Salicylates Level 5.2 mg/dL (2.8-20.0) Salicylate Last Dose Date Unknown Salicylate Last Dose Time Unknown Acetaminophen Level < 2 mcg/ml (10-30) Acetaminophen Last Dose Date Unknown Acetaminophen Last Dose Time Unknown Ethyl Alcohol Level < 10 mg/dL (0-10) Urine Collection Type Unknown Urine Color Yellow Urine Clarity Clear Urine pH 6.0 (<5.0-8.0) Urine Specific [place] >=1.030 (1.000-1.030) Urine Protein Negative mg/dL (NEG-TRACE) Urine Glucose (UA) Negative mg/dL (NEG) Urine Ketones (Stick) Negative mg/dL (NEG) Urine Blood Negative (NEG) Urine Nitrite Negative (NEG) Urine Bilirubin Negative (NEG) Urine Urobilinogen Dipstick 0.2 mg/dL (0.2 mg/dL) Urine Leukocyte Esterase Negative (NEG) Urine RBC 0 /HPF (0-2) Urine WBC 1-4 /HPF (0-4) Urine Squamous Epithelial Cells Few /LPF Urine Bacteria Few /HPF (0-FEW) Urine Opiates Screen Neg (NEG) Urine Methadone Screen Neg (NEG) Urine Barbiturates Neg (NEG) Urine Phencyclidine Screen Neg (NEG) Urine Amphetamine/Methamphetamine Neg (NEG) Urine Benzodiazepines Screen Neg (NEG) Urine Cocaine Screen Neg (NEG) Urine Cannabinoids Screen Neg (NEG) Urine Ethyl Alcohol Neg (NEG) SARS-CoV-2 Antigen (Rapid) Negative (NEGATIVE) Coronavirus (PCR) Not detected (Not Detected) Diagnosis: Diagnosis: 1. Major depressive disorder 2. Unspecified anxiety disorder 3. Unspecified mood disorder likely secondary to traumatic brain injury Assessment: He is a middle-aged gentleman struggling with mood disorder mixed with depression and anxiety and behavioral disturbances in context of multiple traumatic injuries including subdural hematoma and lower extremity fractures. He needs mood stabilizer for the stability of self. He is in agreement to take risperidone 1 mg at bedtime. Additionally, will order nicotine patch 14 mg as he wanted to go for smoking. Plan: Start risperidone 1 mg at bedtime for mood stability. Nicotine patch 14 mg as patient is smoke half pack of cigarettes. Risk, benefits, alternatives of the treatment are discussed. He is in agreement with plan and voiced understanding Adverse drug reactions including but not limited to gynecomastia, increased prolactin, risk of EPS, tardive dyskinesia, or dystonia discussed Monitor for symptomatology, behavioral disturbances. Haldol and Ativan as needed for severe agitation. Thank you for involving inpatient MEL CAMPOVERDE MD May 19, 2020 20:29
--- NOTE | 2020-05-19 20:34 | NUR ---
At 1999, octavio ruboi called as patient leave room into the hallway and demands to leave the hospital and demands a cigarette. diversional activities like food, magazines, and a straw to chew on offered and eventually accepted by patient. ativan and haldol given per DEC. pt threatens to have son "bring my guns." will continue to monitor.
[2020-05-19] MEDS ORDERED: risperiDONE 1 MG TABLET. PO SCH (21:00)
[2020-05-20 02:23] VITALS: BP 102/62
[2020-05-20 06:46] VITALS: BP 92/58
[2020-05-20 10:53] VITALS: BP 115/83
[2020-05-20] MEDS: PANTOPRAZOLE 40 MG TABLET.DR. PO SCH (11:04)
[2020-05-20] MEDS: NICOTINE 14MG PATCH. TD SCH (11:04)
--- NOTE | 2020-05-20 11:22 | NUR ---
AYAKA following. Discussed with RN and Dr. Chairez. Khai ZHANG) will be working on placement, pt willing to go. AYAKA will continue to follow. Addendum: 05/20/20 at 1432 by JULIO MARLEY Referral sent to and [facility]. MALKA requesting new note from physician stating pt is voluntary etc. Anastasia called to speak with RN. AYAKA will continue to follow. Addendum: 05/20/20 at 1514 by JULIO MARLEY Pt now trying to leave Khai MCELROY with [facility] doing an involuntary placement screen. Anastasia declined to take patient. AYAKA will continue to follow. RN notified.
[2020-05-20] MEDS ORDERED: RISP1TAB43 PO (11:38)
[2020-05-20] MEDS ORDERED: PANT40TA77 PO (11:38)
[2020-05-20] MEDS ORDERED: Nicotine 14MG TD (11:38)
[2020-05-20] MEDS ORDERED: LORA-434 PO (11:38)
--- NOTE | 2020-05-20 11:40 | SNU/HH DC ---
DISCHARGE ORDERS DISCHARGE INFORMATION: DISCHARGE DATE: May 20, 2020 FINAL DIAGNOSIS suicidal ideation subdural hematoma, stable tobacco use disorder anxiety and depression Problems Medical Problems: (1) Subdural hematoma Status: Acute (2) Suicidal ideation Status: Acute CONDITION ON DISCHARGE: Stable CODE STATUS: Code Status: Full POST DISCHARGE ORDERS: DIET AFTER DISCHARGE: Regular DISCHARGE MEDICATIONS: Home Meds Active Scripts Duloxetine Hcl (CYMBALTA) 60 Mg Capsule.dr, 1 CAP PO DAILY for depression, #90 CAP 3 Refills Prov:MARIA T BARBOUR MD 05/20/20 Trazodone Hcl (TRAZODONE HCL) 50 Mg Tablet, 1 TAB PO QHS for sleep, #30 TAB 1 Refill Prov:MARIA T BARBOUR MD 05/20/20 Aripiprazole (ABILIFY) 5 Mg Tablet, 1 TAB PO DAILY for psych for 30 Days, #30 TAB 0 Refills Prov:MARIA T BARBOUR MD 05/20/20 Lorazepam (ATIVAN) 1 Mg Tablet, 1 MG PO DAILY PRN for ANXIETY / AGITATION, #30 TAB Prov:MARIA T BARBOUR MD 05/20/20 [Nicotine 14MG] 1 PATCH PATCH No Conflict Check, 1 PATCH TD DAILY for smoking cessation, #7 Prov:MARIA T BARBOUR MD 05/20/20 Pantoprazole Sodium (PANTOPRAZOLE SODIUM ) 40 Mg Tablet.dr, 40 MG PO DAILYAC for GERD, #30 TAB.SR Prov:MARIA T BARBOUR MD 05/20/20 Risperidone (RISPERDAL) 1 Mg Tablet, 1 MG PO QHS for sleep, #30 TAB Prov:MARIA T BARBOUR MD 05/20/20 MARIA T BARBOUR MD May 20, 2020 11:40
[2020-05-20] MEDS ORDERED: ARIP5TAB13 PO (12:11)
[2020-05-20] MEDS ORDERED: TRAZ-118 PO (12:11)
[2020-05-20] MEDS ORDERED: DULO60CA6 PO (12:11)
--- NOTE | 2020-05-20 12:14 | PDOC3 ---
Discharge Summary Visit Information Date of Admission: May 18, 2020 Date of Discharge: May 20, 2020 Final Diagnosis suicial major depression anxiety insomnia small subdural hematoma prior substance abuse Problems Medical Problems: (1) Subdural hematoma Status: Acute (2) Suicidal ideation Status: Acute Brief Hospital Course Allergies Allergies Coded Allergies Type Severity Reaction Last Updated Verified No Known Drug Allergies 05/18/20 No Vital Signs Vital Signs Date Time Temp Pulse Resp B/P (MAP) Pulse Ox O2 Delivery O2 Flow Rate FiO2 05/20/20 10:53 97.8 89 18 115/83 (94) 93 Room Air 97.8 Lab Results Laboratory Tests Test 05/18/20 13:26 05/18/20 14:25 05/18/20 14:30 Urine Collection Type Unknown Urine Color Yellow Urine Clarity Clear Urine pH 6.0 (<5.0-8.0) Urine Specific [place] >=1.030 (1.000-1.030) Urine Protein Negative mg/dL (NEG-TRACE) Urine Glucose (UA) Negative mg/dL (NEG) Urine Ketones (Stick) Negative mg/dL (NEG) Urine Blood Negative (NEG) Urine Nitrite Negative (NEG) Urine Bilirubin Negative (NEG) Urine Urobilinogen Dipstick 0.2 mg/dL (0.2 mg/dL) Urine Leukocyte Esterase Negative (NEG) Urine RBC 0 /HPF (0-2) Urine WBC 1-4 /HPF (0-4) Urine Squamous Epithelial Cells Few /LPF Urine Bacteria Few /HPF (0-FEW) Urine Opiates Screen Neg (NEG) Urine Methadone Screen Neg (NEG) Urine Barbiturates Neg (NEG) Urine Phencyclidine Screen Neg (NEG) Urine Amphetamine/Methamphetamine Neg (NEG) Urine Benzodiazepines Screen Neg (NEG) Urine Cocaine Screen Neg (NEG) Urine Cannabinoids Screen Neg (NEG) Urine Ethyl Alcohol Neg (NEG) SARS-CoV-2 Antigen (Rapid) Negative (NEGATIVE) Coronavirus (PCR) Not detected (Not Detected) Brief Hospital Course Mr. Grace is a 59-year-old gentleman who suffered right lower extremity fractures following a fall 2 months ago. 2 weeks ago he had another fall and hit his head found to have subdural hematoma. In addition to that he expressed suicidal ideation. he was dysphoric, irritable, and avoiding eye contact, was minimally interactive, with monosyllabic answers on admit, but becaume more interactive and talkative. he was upset about some things, that changed over time. Was upset that he could not find his son's phone number 1:1 obs here, he asked for transfer to [facility], he reports he has been at [facility] before Discharge Information Condition at Discharge: Improved Follow Up: Weeks Disposition/Orders: D/C to Another Facility Scheduled Aripiprazole (Abilify) 5 Mg Tablet, 1 TAB PO DAILY for psych for 30 Days, #30 Ref 0 Prescribed by: MARIA T BARBOUR on 05/20/20 1211 Duloxetine Hcl (Cymbalta) 60 Mg Capsule., 1 CAP PO DAILY for depression, #90 Ref 3 Prescribed by: MARIA T BARBOUR on 05/20/20 1211 Pantoprazole Sodium (Pantoprazole Sodium ) 40 Mg Tablet.dr, 40 MG PO DAILYAC for GERD, #30 Prescribed by: MARIA T BARBOUR on 05/20/20 1138 Risperidone (Risperdal) 1 Mg Tablet, 1 MG PO QHS for sleep, #30 Prescribed by: MARIA T BARBOUR on 05/20/20 1138 Trazodone Hcl (Trazodone Hcl) 50 Mg Tablet, 1 TAB PO QHS for sleep, #30 Ref 1 Prescribed by: MARIA T BARBOUR on 05/20/20 1211 [Nicotine 14MG] 1 PATCH PATCH, 1 PATCH TD DAILY for smoking cessation, #7 Prescribed by: MARIA T BARBOUR on 05/20/20 1138 Scheduled PRN Lorazepam (Ativan) 1 Mg Tablet, 1 MG PO DAILY PRN for ANXIETY / AGITATION, #30 Prescribed by: MARIA T BARBOUR on 05/20/20 1138 Patient Instructions Patient Instructions to [facility] over 30 minutes coordinating care Justicifation of Admission Dx: Justifications for Admission: Justification of Admission Dx: N/A Acute Hemorrhagic Stroke: Acute Hemorrhagic Stroke MARIA T BARBOUR MD May 20, 2020 12:14
[2020-05-20] MEDS: HALOPERIDOL LACTATE 5 MG/ML VIAL. IVP PRN ×2 (13:34→23:23)
--- NOTE | 2020-05-20 14:31 | PDOC ---
PROGRESS NOTES Date of Service: DATE: 05/20/20 TIME: 14:28 Chief Complaint Chief Complaint Subdural hematoma - stable on follow up CT Suicidal ideation major depressive disorder tobacco use prior drug abuse history, none in 2 weeks History of Present Illness History of Present Illness 05/20 pt here voluntarily, no 72 hour hold started, he would like to admit to psych facility for depression and feels suicidal, Vitals Vitals Vital Signs Date Time Temp Pulse Resp B/P (MAP) Pulse Ox O2 Delivery O2 Flow Rate FiO2 05/20/20 10:53 97.8 89 18 115/83 (94) 93 Room Air 97.8 Physical Exam General: Alert, Oriented X3, Cooperative, No acute distress Heart: Regular rate (SR), Normal S1, Normal S2, No murmurs Lungs: Clear Abdomen: Soft, No tenderness Extremities: No cyanosis, No edema Skin: No breakdown, No significant lesion Labs LABS imaging, CT head 1. Stable left cerebral convexity small subdural hematoma. Review of Systems Review of Systems no n.vd Assessment and Plan Assessmemt and Plan Problems Medical Problems: (1) Subdural hematoma Status: Acute (2) Suicidal ideation Status: Acute Comment Review of Relevant I have reviewed the following items alexandra (where applicable) has been applied. Labs Laboratory Tests Test 05/18/20 14:30 Coronavirus (PCR) Not detected (Not Detected) Medications Current Medications Sodium Chloride 1,000 ml @ 1,000 mls/hr Q1H IV Last administered on 05/18/20at 12:17; Start 05/18/20 at 11:49; Stop 05/18/20 at 12:48; Status DC Fentanyl Citrate (Fentanyl 2ml Vial) 50 mcg 1X ONCE IVP Last administered on 05/18/20at 12:17; Start 05/18/20 at 12:00; Stop 05/18/20 at 12:01; Status DC Ondansetron HCl (Zofran) 4 mg 1X ONCE IVP Last administered on 05/18/20at 12:17; Start 05/18/20 at 12:00; Stop 05/18/20 at 12:01; Status DC Famotidine (Pepcid Vial) 20 mg 1X ONCE IVP Last administered on 05/18/20at 12:17; Start 05/18/20 at 12:00; Stop 05/18/20 at 12:01; Status DC Iohexol (Omnipaque 300 Mg/ml) 75 ml 1X ONCE IV Last administered on 05/18/20at 13:08; Start 05/18/20 at 12:45; Stop 05/18/20 at 12:46; Status DC Info (CONTRAST GIVEN -- Rx MONITORING) 1 each PRN DAILY PRN MC SEE COMMENTS; Start 05/18/20 at 13:00; Stop 05/20/20 at 12:59; Status DC Ondansetron HCl (Zofran) 4 mg PRN Q8HRS PRN IV NAUSEA/VOMITING; Start 05/18/20 at 14:15; Stop 05/19/20 at 14:14; Status DC Fentanyl Citrate (Fentanyl 2ml Vial) 50 mcg PRN Q1HR PRN IV PAIN Last administered on 05/18/20at 23:14; Start 05/18/20 at 14:15; Stop 05/19/20 at 14:14; Status DC Sodium Chloride 1,000 ml @ 100 mls/hr Q10H IV Last administered on 05/19/20at 01:18; Start 05/18/20 at 14:01; Stop 05/19/20 at 14:00; Status DC Lorazepam (Ativan Inj) 2 mg PRN Q2HRS PRN IVP ANXIETY / AGITATION Last administered on 05/20/20at 12:28; Start 05/19/20 at 10:00 Haloperidol Lactate (Haldol Inj) 5 mg PRN Q8HRS PRN IVP AGITATION Last administered on 05/20/20at 13:34; Start 05/19/20 at 10:00 Ziprasidone (Geodon Im) 20 mg 1X PRN IM AGITATION; Start 05/19/20 at 10:00; Stop 05/20/20 at 09:59; Status DC Pantoprazole Sodium (Protonix) 40 mg DAILYAC PO Last administered on 05/20/20at 11:04; Start 05/20/20 at 07:30 Nicotine (Nicoderm Cq 14mg) 1 patch DAILY TD Last administered on 05/20/20at 11:04; Start 05/19/20 at 20:00 Risperidone (RisperDAL) 1 mg QHS PO Last administered on 05/19/20at 20:01; Start 05/19/20 at 21:00 Active Scripts Active Cymbalta (Duloxetine Hcl) 60 Mg Capsule.dr 1 Cap PO DAILY Trazodone Hcl 50 Mg Tablet 1 Tab PO QHS Abilify (Aripiprazole) 5 Mg Tablet 1 Tab PO DAILY 30 Days Ativan (Lorazepam) 1 Mg Tablet 1 Mg PO DAILY PRN [Nicotine 14MG] 1 PATCH Patch 1 Patch TD DAILY Pantoprazole Sodium (Pantoprazole Sodium) 40 Mg Tablet.dr 40 Mg PO DAILYAC Risperdal (Risperidone) 1 Mg Tablet 1 Mg PO QHS Vitals/I & O Vital Sign - Last 24 Hours 05/19/20 05/19/20 05/19/20 05/19/20 15:00 16:00 18:20 19:30 Temp 97.5 97.5 Pulse 71 67 66 75 Resp 18 B/P (MAP) 108/72 (84) 110/69 (83) 105/79 (88) 108/70 (83) Pulse Ox 95 93 95 98 O2 Delivery Room Air Room Air Room Air Room Air 05/19/20 05/19/20 05/20/20 05/20/20 20:00 22:53 02:23 06:46 Temp 97.9 97.8 97.1 97.9 97.8 97.1 Pulse 67 63 107 Resp 18 18 18 B/P (MAP) 95/53 (67) 102/62 (75) 92/58 (69) Pulse Ox 95 94 91 O2 Delivery Room Air Room Air Room Air Room Air 05/20/20 10:53 Temp 97.8 97.8 Pulse 89 Resp 18 B/P (MAP) 115/83 (94) Pulse Ox 93 O2 Delivery Room Air Intake and Output 05/19/20 05/19/20 05/20/20 15:00 23:00 07:00 Intake Total 0 ml 200 ml Output Total 760 ml 300 ml 200 ml Balance -760 ml -100 ml -200 ml Justicifation of Admission Dx: Justifications for Admission: Justification of Admission Dx: N/A Acute Hemorrhagic Stroke: Acute Hemorrhagic Stroke MARIA T BARBOUR MD May 20, 2020 14:31
[2020-05-20 15:08] VITALS: BP 126/78
[2020-05-20] MEDS: oxyCODONE/APAP 7.5/325 1 TAB TABLET PO PRN (15:14)
[2020-05-20] MEDS ORDERED: ZIPRASIDONE IM 20 MG VIAL. IM PRN (15:15)
[2020-05-20] MEDS ORDERED: HALOPERIDOL 5 MG TABLET. PO ONE (15:45)
--- NOTE | 2020-05-20 16:45 | NUR ---
Pt got agitated and verbally aggressive. Stated he was ready to leave and would throw a chair through the window and jump out. Pt pulled out his IV. Mckenna Castillo was called and Dr. Chairez notified. PT still mentions wanting to kill himself. PAT team notified also.
[2020-05-20] MEDS: diphenhydrAMINE HCL 25 MG CAPSULE PO PRN (16:55)
[2020-05-20] MEDS: risperiDONE 1 MG TABLET. PO SCH ×2 (17:08→21:56)
--- NOTE | 2020-05-20 17:35 | PDOC ---
F/U PHYSCH PROG NOTE Subjective: Gentleman is seen for routine follow-up. Progress is reviewed with nursing staff. Patient continues to demonstrate agitation, impulsivity, dysphoric mood and and irritability. [id number] between suicidality and hospital admission. Today he went to the window and tried to open it in order to jump off. He has previous history of multiple suicidal attempts. He continues to be dysphoric and irritable upon presentation complaining that nobody cares about him and help that he needs has not been given. Endorsing suicidal thoughts. Denies auditory or visual hallucinations. Objective: Vital Signs: Vital Signs Date Time Temp Pulse Resp B/P (MAP) Pulse Ox O2 Delivery O2 Flow Rate FiO2 05/20/20 16:14 100 Room Air 05/20/20 15:08 97.6 71 18 126/78 (94) 97.6 Medications: Current Medications Medications (Trade) Dose Ordered Sig/Holly Start Time Stop Time Status Last Admin Dose Admin Diphenhydramine HCl (Benadryl) 50 mg PRN Q6HRS PRN 05/20/20 15:15 05/20/20 16:55 50 MG Famotidine (Pepcid Vial) 20 mg 1X ONCE 05/18/20 12:00 05/18/20 12:01 DC 05/18/20 12:17 20 MG Fentanyl Citrate (Fentanyl 2ml Vial) 50 mcg PRN Q1HR PRN 05/18/20 14:15 05/19/20 14:14 DC 05/18/20 23:14 50 MCG Haloperidol (Haldol) 5 mg 1X ONCE 05/20/20 15:45 05/20/20 15:46 DC 05/20/20 15:14 5 MG Haloperidol Lactate (Haldol Inj) 5 mg PRN Q8HRS PRN 05/19/20 10:00 05/20/20 13:34 5 MG Info (CONTRAST GIVEN -- Rx MONITORING) 1 each PRN DAILY PRN 05/18/20 13:00 05/20/20 12:59 DC Iohexol (Omnipaque 300 Mg/ml) 75 ml 1X ONCE 05/18/20 12:45 05/18/20 12:46 DC 05/18/20 13:08 75 ML Lorazepam (Ativan Inj) 2 mg PRN Q2HRS PRN 05/19/20 10:00 05/20/20 12:28 2 MG Lorazepam (Ativan) 2 mg PRN Q6HRS PRN 05/20/20 15:15 05/20/20 16:06 2 MG Nicotine (Nicoderm Cq 14mg) 1 patch DAILY 05/19/20 20:00 05/20/20 11:04 1 PATCH Ondansetron HCl (Zofran) 4 mg PRN Q8HRS PRN 05/18/20 14:15 05/19/20 14:14 DC Oxycodone/ Acetaminophen (Percocet 7.5/ 325) 1 tab PRN Q4HRS PRN 05/20/20 15:15 05/20/20 15:14 1 TAB Pantoprazole Sodium (Protonix) 40 mg DAILYAC 05/20/20 07:30 05/20/20 11:04 40 MG Risperidone (RisperDAL) 1 mg BID 05/20/20 17:00 05/20/20 17:08 1 MG Sodium Chloride 1,000 ml @ 100 mls/hr Q10H 05/18/20 14:01 05/19/20 14:00 DC 05/19/20 01:18 100 MLS/HR Ziprasidone (Geodon Im) 20 mg PRN DAILY PRN 05/20/20 15:15 Physical Exam: Mental Status Exam: gentleman appears his stated age Not very cooperative with interview Disoriented Thought processes concrete Denies suicidal or homicidal thoughts Denies auditory or visual hallucinations No abnormal perception noted Mood is depressed and anxious Affect is dysphoric Insight is limited Judgment is limited Impulse control is limited Attention span and concentration poor Recent memory impaired Remote memory intact Physical Exam: Refer to Physician's note. CAREER DEVELOPMENT ENGINEER: No focal deficit MSK: No EPS, TDK, or abnormal involuntary movements Diagnosis: 1. Major depressive disorder 2. Unspecified anxiety disorder 3. Unspecified mood disorder likely secondary to traumatic brain injury Assessment: He is a middle-aged gentleman struggling with mood disorder mixed with depression and anxiety and behavioral disturbances in context of multiple traumatic injuries including subdural hematoma and lower extremity fractures. He needs mood stabilizer for the stability of self. He is in agreement to take risperidone 1 mg at bedtime. Additionally, will order nicotine patch 14 mg as he wanted to go for smoking. 05/20/2020: Patient continues to be struggling with dysphoria, suicidal ideation, and mood instability. Continues to have agitation and wanting to jump off the building and attempted today morning. Agree with stated screen for long-term care and substantial stability Plan: Increase risperidone to 1 mg twice daily for mood stability. Start Depakote 250 mg twice daily for mood instability, impulsivity and agitation. Nicotine patch 14 mg as patient is smoke half pack of cigarettes. Risk, benefits, alternatives of the treatment are discussed. He is in agreement with plan and voiced understanding Adverse drug reactions including but not limited to gynecomastia, increased prolactin, risk of EPS, tardive dyskinesia, or dystonia discussed Monitor for symptomatology, behavioral disturbances. Haldol and Ativan as needed for severe agitation. Thank you for involving inpatient MEL CAMPOVERDE MD May 20, 2020 17:35
[2020-05-20 18:54] VITALS: BP 103/74
[2020-05-20] MEDS: DIVALPROEX DELAYED RELEASE 250 MG TABLET.DR. PO SCH (21:56)
[2020-05-20 22:17] VITALS: BP 148/93
--- NOTE | 2020-05-21 01:00 | NUR ---
pt agitated and demanding to leave. pt assisted to toilet in the bathroom. pt intermittently cooperative and combative, labile mood. pt continues inappropriate speech and attempts to touch female staff inappropriately. pt asks this RN "you want to fight?" while standing up and approaching staff. This RN assisted back to bed and he is now sleeping.
[2020-05-21] MEDS: diphenhydrAMINE HCL 25 MG CAPSULE PO PRN ×2 (01:30→17:14)
[2020-05-21] MEDS: oxyCODONE/APAP 7.5/325 1 TAB TABLET PO PRN ×4 (01:31→23:44)
[2020-05-21 02:13] VITALS: BP 104/58
[2020-05-21 07:00] VITALS: BP 95/72
[2020-05-21] MEDS: NICOTINE 14MG PATCH. TD SCH (09:00)
[2020-05-21] MEDS: risperiDONE 1 MG TABLET. PO SCH ×2 (09:18→21:02)
[2020-05-21] MEDS: DIVALPROEX DELAYED RELEASE 250 MG TABLET.DR. PO SCH ×2 (09:18→21:02)
[2020-05-21] MEDS: PANTOPRAZOLE 40 MG TABLET.DR. PO SCH (09:19)
--- NOTE | 2020-05-21 10:27 | NUR ---
SS following up with discharge planning. SS reviewed pt chart and discussed with pt RN. Pt is currently 1:1. Khai from PAT team initiated Involuntary Placement referral to [facility] on 05/20/2020. Pt spoke with the state last night. Pt currently on the wait list for bed at [facility]. Discharge order on the chart. SS will continue to follow for discharge planning.
[2020-05-21 11:00] VITALS: BP 92/80
--- NOTE | 2020-05-21 11:02 | PDOC ---
PROGRESS NOTES Date of Service: DATE: 05/21/20 TIME: 11:01 Chief Complaint Chief Complaint Subdural hematoma - stable on follow up CT Suicidal ideation major depressive disorder tobacco use prior drug abuse history, none in 2 weeks History of Present Illness History of Present Illness 05/21- long visits last night, he was erratic and not sensical and trying to leave. has been suicidal, denied, but was very upset, not safe to leave 72 hour psych hold started last night Vitals Vitals Vital Signs Date Time Temp Pulse Resp B/P (MAP) Pulse Ox O2 Delivery O2 Flow Rate FiO2 05/21/20 09:18 98 Room Air 05/21/20 07:00 96.0 88 20 95/72 (80) 96.0 Physical Exam General: No acute distress, Other (more cooperative today, was not last night) Heart: Regular rate (SR), Normal S1, Normal S2, No murmurs Lungs: Clear Extremities: No cyanosis, No edema Skin: No breakdown, No significant lesion Assessment and Plan Assessmemt and Plan Problems Medical Problems: (1) Subdural hematoma Status: Acute (2) Suicidal ideation Status: Acute Comment Review of Relevant I have reviewed the following items alexandra (where applicable) has been applied. Medications Current Medications Sodium Chloride 1,000 ml @ 1,000 mls/hr Q1H IV Last administered on 05/18/20at 12:17; Start 05/18/20 at 11:49; Stop 05/18/20 at 12:48; Status DC Fentanyl Citrate (Fentanyl 2ml Vial) 50 mcg 1X ONCE IVP Last administered on 05/18/20at 12:17; Start 05/18/20 at 12:00; Stop 05/18/20 at 12:01; Status DC Ondansetron HCl (Zofran) 4 mg 1X ONCE IVP Last administered on 05/18/20at 12:17; Start 05/18/20 at 12:00; Stop 05/18/20 at 12:01; Status DC Famotidine (Pepcid Vial) 20 mg 1X ONCE IVP Last administered on 05/18/20at 12:17; Start 05/18/20 at 12:00; Stop 05/18/20 at 12:01; Status DC Iohexol (Omnipaque 300 Mg/ml) 75 ml 1X ONCE IV Last administered on 05/18/20at 13:08; Start 05/18/20 at 12:45; Stop 05/18/20 at 12:46; Status DC Info (CONTRAST GIVEN -- Rx MONITORING) 1 each PRN DAILY PRN MC SEE COMMENTS; Start 05/18/20 at 13:00; Stop 05/20/20 at 12:59; Status DC Ondansetron HCl (Zofran) 4 mg PRN Q8HRS PRN IV NAUSEA/VOMITING; Start 05/18/20 at 14:15; Stop 05/19/20 at 14:14; Status DC Fentanyl Citrate (Fentanyl 2ml Vial) 50 mcg PRN Q1HR PRN IV PAIN Last administered on 05/18/20at 23:14; Start 05/18/20 at 14:15; Stop 05/19/20 at 14:14; Status DC Sodium Chloride 1,000 ml @ 100 mls/hr Q10H IV Last administered on 05/19/20at 01:18; Start 05/18/20 at 14:01; Stop 05/19/20 at 14:00; Status DC Lorazepam (Ativan Inj) 2 mg PRN Q2HRS PRN IVP ANXIETY / AGITATION Last administered on 05/21/20at 03:03; Start 05/19/20 at 10:00 Haloperidol Lactate (Haldol Inj) 5 mg PRN Q8HRS PRN IVP AGITATION Last administered on 05/20/20at 23:23; Start 05/19/20 at 10:00 Ziprasidone (Geodon Im) 20 mg 1X PRN IM AGITATION; Start 05/19/20 at 10:00; Stop 05/20/20 at 09:59; Status DC Pantoprazole Sodium (Protonix) 40 mg DAILYAC PO Last administered on 05/21/20at 09:19; Start 05/20/20 at 07:30 Nicotine (Nicoderm Cq 14mg) 1 patch DAILY TD Last administered on 05/20/20at 11:04; Start 05/19/20 at 20:00 Risperidone (RisperDAL) 1 mg QHS PO Last administered on 05/19/20at 20:01; Start 05/19/20 at 21:00; Stop 05/20/20 at 17:00; Status DC Oxycodone/ Acetaminophen (Percocet 7.5/ 325) 1 tab PRN Q4HRS PRN PO PAIN Last administered on 05/21/20 09:18; Start 05/20/20 at 15:15 Haloperidol (Haldol) 5 mg 1X ONCE PO Last administered on 05/20/20 15:14; Start 05/20/20 at 15:45; Stop 05/20/20 at 15:46; Status DC Ziprasidone (Geodon Im) 20 mg PRN DAILY PRN IM agitation; Start 05/20/20 at 15:15 Lorazepam (Ativan) 2 mg PRN Q6HRS PRN PO ANXIETY / AGITATION Last administered on 05/21/20 09:18; Start 05/20/20 at 15:15 Diphenhydramine HCl (Benadryl) 50 mg PRN Q6HRS PRN PO ITCHING Last administered on 05/21/20 01:30; Start 05/20/20 at 15:15 Risperidone (RisperDAL) 1 mg BID PO Last administered on 05/21/20 09:18; Start 05/20/20 at 17:00 Divalproex Sodium (Depakote) 250 mg BID PO Last administered on 05/21/20 09:18; Start 05/20/20 at 21:00 Active Scripts Active Cymbalta (Duloxetine Hcl) 60 Mg Capsule. 1 Cap PO DAILY Trazodone Hcl 50 Mg Tablet 1 Tab PO QHS Abilify (Aripiprazole) 5 Mg Tablet 1 Tab PO DAILY 30 Days Ativan (Lorazepam) 1 Mg Tablet 1 Mg PO DAILY PRN [Nicotine 14MG] 1 PATCH Patch 1 Patch TD DAILY Pantoprazole Sodium (Pantoprazole Sodium) 40 Mg Tablet. 40 Mg PO DAILYAC Risperdal (Risperidone) 1 Mg Tablet 1 Mg PO QHS Vitals/I & O Vital Sign - Last 24 Hours 05/20/20 05/20/20 05/20/20 05/20/20 15:08 15:14 16:14 18:54 Temp 97.6 96.6 97.6 96.6 Pulse 71 79 Resp 18 18 B/P (MAP) 126/78 (94) 103/74 (84) Pulse Ox 100 100 100 97 O2 Delivery Room Air Room Air Room Air Room Air 05/20/20 05/20/20 05/21/20 05/21/20 20:00 22:17 01:31 02:13 Temp 97.3 97.2 97.3 97.2 Pulse 100 65 Resp 22 18 16 B/P (MAP) 148/93 (111) 104/58 (73) Pulse Ox 96 96 93 O2 Delivery Room Air Room Air Room Air Room Air 05/21/20 05/21/20 05/21/20 05/21/20 02:35 07:00 08:00 09:18 Temp 96.0 96.0 Pulse 88 Resp 20 20 B/P (MAP) 95/72 (80) Pulse Ox 93 98 98 O2 Delivery Room Air Room Air Room Air Room Air Intake and Output 05/20/20 05/20/20 05/21/20 15:00 23:00 07:00 Intake Total 420 ml 1380 ml 1080 ml Output Total 200 ml Balance 220 ml 1380 ml 1080 ml Justicifation of Admission Dx: Justifications for Admission: Justification of Admission Dx: N/A Acute Hemorrhagic Stroke: Acute Hemorrhagic Stroke MARIA T BARBOUR MD May 21, 2020 11:02
[2020-05-21 15:01] VITALS: BP 127/87
--- NOTE | 2020-05-21 15:10 | PDOC ---
F/U PHYSCH PROG NOTE Subjective: Gentleman is seen for routine follow-up. Progress is reviewed with nursing staff. No major emotional or behavioral breakdown reported. Reportedly, he is more calm and quiet did not require frequent Haldol or Ativan as needed. Only required once since last night. Upon conversation he appears quiet not very interactive. Not complaining as much. Listening to the instructions and talking to his correctional case records supervisor politely. Denies suicidal or homicidal thoughts. Denies auditory or visual hallucinations. No evidence of ned or hypomania. Objective: 14 point review of system is otherwise negative except for his stated above in subjective history Vital Signs: Vital Signs Date Time Temp Pulse Resp B/P (MAP) Pulse Ox O2 Delivery O2 Flow Rate FiO2 05/21/20 15:01 98.7 109 20 127/87 (100) 98 Room Air 98.7 Medications: Current Medications Medications (Trade) Dose Ordered Sig/Holly Start Time Stop Time Status Last Admin Dose Admin Diphenhydramine HCl (Benadryl) 50 mg PRN Q6HRS PRN 05/20/20 15:15 05/21/20 01:30 50 MG Divalproex Sodium (Depakote) 250 mg BID 05/20/20 21:00 05/21/20 09:18 250 MG Famotidine (Pepcid Vial) 20 mg 1X ONCE 05/18/20 12:00 05/18/20 12:01 DC 05/18/20 12:17 20 MG Fentanyl Citrate (Fentanyl 2ml Vial) 50 mcg PRN Q1HR PRN 05/18/20 14:15 05/19/20 14:14 DC 05/18/20 23:14 50 MCG Haloperidol (Haldol) 5 mg 1X ONCE 05/20/20 15:45 05/20/20 15:46 DC 05/20/20 15:14 5 MG Haloperidol Lactate (Haldol Inj) 5 mg PRN Q8HRS PRN 05/19/20 10:00 05/20/20 23:23 5 MG Info (CONTRAST GIVEN -- Rx MONITORING) 1 each PRN DAILY PRN 05/18/20 13:00 05/20/20 12:59 DC Iohexol (Omnipaque 300 Mg/ml) 75 ml 1X ONCE 05/18/20 12:45 05/18/20 12:46 DC 05/18/20 13:08 75 ML Lorazepam (Ativan Inj) 2 mg PRN Q2HRS PRN 05/19/20 10:00 05/21/20 03:03 2 MG Lorazepam (Ativan) 2 mg PRN Q6HRS PRN 05/20/20 15:15 05/21/20 09:18 2 MG Nicotine (Nicoderm Cq 14mg) 1 patch DAILY 05/19/20 20:00 05/20/20 11:04 1 PATCH Ondansetron HCl (Zofran) 4 mg PRN Q8HRS PRN 05/18/20 14:15 05/19/20 14:14 DC Oxycodone/ Acetaminophen (Percocet 7.5/ 325) 1 tab PRN Q4HRS PRN 05/20/20 15:15 05/21/20 09:18 1 TAB Pantoprazole Sodium (Protonix) 40 mg DAILYAC 05/20/20 07:30 05/21/20 09:19 40 MG Risperidone (RisperDAL) 1 mg BID 05/20/20 17:00 05/21/20 09:18 1 MG Sodium Chloride 1,000 ml @ 100 mls/hr Q10H 05/18/20 14:01 05/19/20 14:00 DC 05/19/20 01:18 100 MLS/HR Ziprasidone (Geodon Im) 20 mg PRN DAILY PRN 05/20/20 15:15 Physical Exam: Mental Status Exam: gentleman appears his stated age Relatively cooperative monitor Disoriented Thought processes concrete Denies suicidal or homicidal thoughts Denies auditory or visual hallucinations No abnormal perception noted Mood is improved Affect is constricted Insight is limited Judgment is limited Impulse control is limited Attention span and concentration poor Recent memory impaired Remote memory intact Physical Exam: Refer to Physician's note. REED PRESS FEEDER: No focal deficit MSK: No EPS, TDK, or abnormal involuntary movements Diagnosis: 1. Major depressive disorder 2. Unspecified anxiety disorder 3. Unspecified mood disorder likely secondary to traumatic brain injury Assessment: Assessment: He is a middle-aged gentleman struggling with mood disorder mixed with depression and anxiety and behavioral disturbances in context of multiple traumatic injuries including subdural hematoma and lower extremity fractures. He needs mood stabilizer for the stability of self. He is in agreement to take risperidone 1 mg at bedtime. Additionally, will order nicotine patch 14 mg as he wanted to go for smoking. 05/21/2020: With increment in psychotropics he is demonstrating considerable improvement in his agitation, irritability, and anger. Plan: continue risperidone to 1 mg twice daily for mood stability. Continue Depakote 250 mg twice daily for mood instability, impulsivity and agitation. Nicotine patch 14 mg as patient is smoke half pack of cigarettes. Risk, benefits, alternatives of the treatment are discussed. He is in agreement with plan and voiced understanding Adverse drug reactions including but not limited to gynecomastia, increased prolactin, risk of EPS, tardive dyskinesia, or dystonia discussed Monitor for symptomatology, behavioral disturbances. Haldol and Ativan as need ed for severe agitation. Thank you for involving inpatient MEL CAMPOVERDE MD May 21, 2020 15:10
[2020-05-21] MEDS: HALOPERIDOL LACTATE 5 MG/ML VIAL. IVP PRN (17:14)
--- NOTE | 2020-05-21 18:37 | NUR ---
Pt wanted to smoke and was wanting to leave the facility. PT got verbally aggressive once we told him that he could not leave and that he should return to his room. Pt raised a fist and told this nurse that he was leaving and nothing we can do to stop him. Mckenna simon was called.
[2020-05-21 18:58] VITALS: BP 117/81
[2020-05-21 22:19] VITALS: BP 106/73
[2020-05-22 02:39] VITALS: BP 100/65
[2020-05-22 06:46] VITALS: BP 103/64
[2020-05-22] MEDS: PANTOPRAZOLE 40 MG TABLET.DR. PO SCH (08:06)
[2020-05-22] MEDS ORDERED: ACETAMINOPHEN 325 MG TABLET. PO PRN (08:45)
[2020-05-22] MEDS ORDERED: BUTALB/APAP/CAFEIN 50/325/40MG TABLET. PO PRN (08:45)
[2020-05-22] MEDS: risperiDONE 1 MG TABLET. PO SCH (08:53)
[2020-05-22] MEDS: DIVALPROEX DELAYED RELEASE 250 MG TABLET.DR. PO SCH (08:53)
[2020-05-22] MEDS: NICOTINE 14MG PATCH. TD SCH (08:54)
[2020-05-22 09:30] LABS: HEMATOCRIT 47.6 % (39.0-53.0); HEMOGLOBIN 16.1 g/dL (13.0-17.5); RED BLOOD COUNT 5.07 x10^6/uL (4.30-5.70); RED CELL DISTRIBUTION WIDTH 13.6 % (11.5-14.5); WHITE BLOOD COUNT 6.4 x10^3/uL (4.0-11.0)
[2020-05-22 09:47] LABS: CREATININE 0.9 mg/dL (0.7-1.3); GFR 85.8
[2020-05-22 10:59] VITALS: BP 127/76
--- NOTE | 2020-05-22 11:48 | NUR ---
SS following up with discharge planning. SS reviewed pt chart and discussed with pt RN. Pt not accepted by the state for involuntary placement due to having TBI according to [facility] [id number]. PAT team contacted Dr. Chairez and discussed. Tete from [facility] team came and reassessed pt. Per Tete, pt will go to [facility] today. Pt's telehealth case manager, Tosha, from [facility] coming to transport pt to [facility]. Discharge order on the chart. SS will continue to follow for discharge planning.
[2020-05-22] MEDS ORDERED: DIVA250T PO (13:12)
[2020-05-22] MEDS ORDERED: DIVA500T4 PO (13:15)
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
[2020-05-22] MEDS ORDERED: RISP1TAB43 PO (13:30)
[2020-05-22 14:29] VITALS: BP 111/75
--- NOTE | 2020-05-22 15:20 | NUR ---
Discharge orders placed. Discussed discharge instructions/medications with pt. IV removed without complications. Explained to Mike he will be going to inpatient crisis care unit. Pt verbalized understanding. MARTINE Celeste wheeled pt off unit without complications.
--- NOTE | 2020-05-22 16:11 | NUR ---
Left message for Sugar Mixer, Tosha explaining pt was discharged. Asked Tosha to return call for verification of message.
== END 2020-05-22 15:20 | DRG 86 ==
LOC: ER 11:38 → 1 WEST ICU 14:00 → 2 SOUTH 05-19 19:58
PROVIDERS: ADMIT Internal Medicine; ATTEND Internal Medicine
DX: S06.5X0A Traumatic subdural hemorrhage without loss of consciousness, initial encounter (principal); R45.851 Suicidal ideations; G93.49 Other encephalopathy; F03.91 Unspecified dementia, unspecified severity, with behavioral disturbance; F17.210 Nicotine dependence, cigarettes, uncomplicated; F32.9 Major depressive disorder, single episode, unspecified; F41.9 Anxiety disorder, unspecified; S92.001A Unspecified fracture of right calcaneus, initial encounter for closed fracture; M19.90 Unspecified osteoarthritis, unspecified site; M48.02 Spinal stenosis, cervical region; F03.90 Unspecified dementia, unspecified severity, without behavioral disturbance, psychotic disturbance, mood disturbance, and anxiety; R41.9 Unspecified symptoms and signs involving cognitive functions and awareness; R07.89 Other chest pain; R45.87 Impulsiveness; R94.31 Abnormal electrocardiogram [ECG] [EKG]; J44.9 Chronic obstructive pulmonary disease, unspecified; Z20.828 Contact with and (suspected) exposure to other viral communicable diseases; X58.XXXA Exposure to other specified factors, initial encounter; Z91.5 Personal history of self-harm; Z82.49 Family history of ischemic heart disease and other diseases of the circulatory system; Z79.899 Other long term (current) drug therapy; Z59.0 Homelessness; Z87.820 Personal history of traumatic brain injury; Y93.89 Activity, other specified; Y92.89 Other specified places as the place of occurrence of the external cause; Y99.8 Other external cause status
CPT/HCPCS: 36415; 70450; 71045; 73590; 73610; 73630; 74177; 80048; 80053; 80307; 80329; 81001; 83690; 84484; 85025; 85027; 85610; 87426; 93005; 96361; 96374; 96375; 99285; G0480; J1630; J2060; J2405; J3010; J3490; J7030; Q9967; G0378; Q0163; U0003-CS

== ENCOUNTER 2020-05-22 16:57 | Emergency (ER) | payer MEDICARE, MEDICAID ==
[~2020-05-22] VITALS: Ht 175.3 cm; Wt 70.4 kg
[~2020-05-22 16:57] MED LIST: ARIP5TAB13 PO; DIVA250T PO; DIVA500T4 PO; DULO60CA6 PO; LORA-434 PO; Nicotine 14MG TD; PANT40TA77 PO; RISP1TAB43 PO; TRAZ-118 PO
[2020-05-22 17:30] VITALS: BP 132/84
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
== END 2020-05-22 19:30 | disposition home or self-care (01) ==
LOC: ER 16:57
DX: M79.671 Pain in right foot (principal); Z59.0 Homelessness; F17.200 Nicotine dependence, unspecified, uncomplicated
CPT/HCPCS: 99283

== ENCOUNTER 2020-06-01 19:17 | Emergency (ER) | payer MEDICARE, MEDICAID ==
[~2020-06-01] VITALS: Ht 175.3 cm; Wt 70.0 kg
[2020-06-01 19:23] VITALS: BP 116/72
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
[2020-06-01] MEDS ORDERED: NAPROXEN 500 MG TABLET PO STA (20:54)
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
== END 2020-06-01 21:04 | disposition home or self-care (01) ==
LOC: ER 19:17
DX: S50.11XA Contusion of right forearm, initial encounter (principal); F17.200 Nicotine dependence, unspecified, uncomplicated; Z87.820 Personal history of traumatic brain injury; Z98.890 Other specified postprocedural states; X58.XXXA Exposure to other specified factors, initial encounter; Y93.89 Activity, other specified; Y92.89 Other specified places as the place of occurrence of the external cause; Y99.8 Other external cause status
CPT/HCPCS: 73090; 99283

== ENCOUNTER 2020-06-03 13:57 | Emergency (ER) | payer MEDICARE, MEDICAID ==
[~2020-06-03] VITALS: Ht 175.3 cm; Wt 61.3 kg
[2020-06-03] MEDS ORDERED: IV NORMAL SALINE 1000ML BAG 1,000 ML IV SCH (16:23)
[2020-06-03] MEDS ORDERED: KETOROLAC 30 MG/ML VIAL. IVP ONE (16:30)
[2020-06-03] MEDS ORDERED: ONDANSETRON PF 4 MG/2 ML VIAL. IVP ONE (16:30)
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
--- NOTE | 2020-06-03 16:56 | RAD ---
PORTABLE CHEST 1V History: Reason: cough, chest pain / Spl. Instructions: / History: Comparison: May 18, 2020 Findings: No consolidation or pleural effusion. Normal heart size. No pneumothorax. Left upper lung calcified nodule, likely prior granulomatous disease. Partially imaged internal fixation left proximal humerus fracture, unchanged. Impression: 1. No acute cardiopulmonary process. Electronically signed by: Brandon Olivera DO (06/03/2020 4:53 PM) [facility]
[2020-06-03 17:14] LABS: BASO # 0.1 x10^3/uL (0.0-0.2); BASO % 1 % (0-3); EOS # 0.2 x10^3/uL (0.0-0.7); EOS % 3 % (0-3); HEMATOCRIT 42.5 % (39.0-53.0); HEMOGLOBIN 14.8 g/dL (13.0-17.5); LYMPH # 1.7 x10^3/uL (1.0-4.8); LYMPH % 25 % (24-48); MEAN CORPUSCULAR HEMOGLOBIN 32 pg (25-35); MEAN CORPUSCULAR HGB CONC 35 g/dL (31-37); MEAN CORPUSCULAR VOLUME 93 fL (79-100); MONO # 0.6 x10^3/uL (0.0-1.1); MONO % 9 % (0-9); NEUT # 4.5 x10^3/uL (1.8-7.7); NEUT % 63 % (31-73); PLATELET COUNT 224 x10^3/uL (140-400); RED BLOOD COUNT 4.58 x10^6/uL (4.30-5.70); RED CELL DISTRIBUTION WIDTH 13.4 % (11.5-14.5)
[2020-06-03 17:21] LABS: CALCIUM 8.2 mg/dL (8.5-10.1); CREATININE 0.8 mg/dL (0.7-1.3); GFR 98.3; POTASSIUM 4.4 mmol/L (3.5-5.1)
[2020-06-03 17:27] LABS: ALBUMIN 3.3 g/dL (3.4-5.0); TOTAL BILIRUBIN 0.2 mg/dL (0.2-1.0); TOTAL PROTEIN 6.7 g/dL (6.4-8.2)
[2020-06-03 17:31] LABS: BILIRUBIN,URINE NEGATIVE (NEG); CLARITY,URINE CLEAR; COLOR,URINE YELLOW; NITRITE,URINE NEGATIVE (NEG); PH,URINE 5.5 (<5.0-8.0); PROTEIN,URINE NEGATIVE (NEG-TRACE); UROBILINOGEN,URINE 0.2 mg/dL (0.2 mg/dL)
[2020-06-03 17:37] LABS: AMPHETAMINE/METHAMPHETAMINE NEG (NEG); BARBITURATES NEG (NEG); BENZODIAZEPINES NEG (NEG); CANNABINOIDS NEG (NEG); COCAINE NEG (NEG); METHADONE NEG (NEG); OPIATES NEG (NEG); PHENCYCLIDINE NEG (NEG)
[2020-06-03 17:40] LABS: BACTERIA,URINE 0 /HPF (0-FEW); RBC,URINE 0 /HPF (0-2); WBC,URINE 0 /HPF (0-4)
[2020-06-03] MEDS ORDERED: IOHEXOL 300 MG/ML 100ML VIAL. IV ONE (17:45)
--- NOTE | 2020-06-03 18:16 | RAD ---
CT ABD PELV W/ IV CONTRST ONLY History: Reason: abd pain, n,v / Spl. Instructions: [id number] 75ml / History: Technique: After the administration of intravenous contrast, CT imaging was performed of the abdomen and pelvis. Multiplanar images are reviewed. Exposure: One or more of the following individualized dose reduction techniques were utilized for this examination: 1. Automated exposure control 2. Adjustment of the mA and/or kV according to patient size 3. Use of iterative reconstruction technique. Comparison: May 18, 2020 Findings: Lower chest: No consolidation or pleural effusion. Abdomen and pelvis: The liver, spleen, and adrenal glands are unremarkable. Contracted gallbladder. Mildly dilated common bile duct measures up to 9 mm. The distal common bile duct tapers normally. Minimally dilated intrahepatic ducts. Small hypodensity within the pancreatic body measures 6 mm (series 4 image 19. Normal appearance of the kidneys. No hydronephrosis. Normal appendix. No evidence of bowel obstruction. No pathologic lymphadenopathy. No ascites. Mild atheromatous plaque throughout the nonaneurysmal abdominal aorta and branch vessels. Bones: Multilevel lumbar spondylosis. L5-S1 intervertebral fusion. Impression: 1. Mildly dilated common bile duct and minimal intrahepatic biliary ductal dilatation. Recommend correlation with biliary lab values. If persistent clinical concern, MRI/MRCP can further evaluate. 2. Small hypodense lesion with pancreatic body, may represent sidebranch IPMN, pancreatic cyst or less likely cystic neoplasm. Recommend attention on MRI. Electronically signed by: Brandon Olivera DO (06/03/2020 6:13 PM) [facility]
[2020-06-03] MEDS ORDERED: ONDA4TAB12 PO (18:46)
[2020-06-03 19:30] VITALS: BP 125/105
--- NOTE | 2020-06-04 05:25 | EKG ---
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
== END 2020-06-03 20:04 | disposition home or self-care (01) ==
LOC: ER 13:57
DX: R10.84 Generalized abdominal pain (principal); R07.89 Other chest pain; R11.2 Nausea with vomiting, unspecified; R05 Cough; M79.10 Myalgia, unspecified site; F17.200 Nicotine dependence, unspecified, uncomplicated; Z87.820 Personal history of traumatic brain injury
CPT/HCPCS: 36415; 71045; 74177; 80053; 80307; 81001; 83690; 85025; 85610; 93005; 96361; 96374; 96375; 99285; J1885; J2405; J7030; Q9967

== ENCOUNTER 2020-06-14 01:57 | Emergency (ER) | payer MEDICARE, MEDICAID ==
[~2020-06-14] VITALS: Ht 175.3 cm; Wt 65.9 kg
[2020-06-14 01:57] VITALS: BP 100/76
[~2020-06-14 01:57] MED LIST changes: +ONDA4TAB12 PO
[2020-06-14] MEDS ORDERED: TRAM-48 PO (02:44)
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
--- NOTE | 2020-06-14 03:58 | RAD ---
RIGHT ANKLE AP, LATERAL, OBLIQUE Clinical Indication: Reason: ankle pain / Comparison: Right ankle, 3 views, May 18, 2020. Findings: There is no acute fracture or dislocation. Mineralization is normal. There is subtalar degenerative change. There are moderate calcaneal bone spurs. Chronic deformity of the calcaneus may be due to old fracture. The ankle mortise is intact. Ankle joint effusion. Mild lateral ankle soft tissue swelling. IMPRESSION: 1. Ankle joint effusion and lateral soft tissue swelling. 2. Chronic fracture of the calcaneus. Electronically signed by: Luis Villatoro MD (06/14/2020 3:55 AM) [facility]
== END 2020-06-14 02:55 | disposition home or self-care (01) ==
LOC: ER 01:57
DX: M25.571 Pain in right ankle and joints of right foot (principal); F32.9 Major depressive disorder, single episode, unspecified; F17.200 Nicotine dependence, unspecified, uncomplicated; Z98.890 Other specified postprocedural states
CPT/HCPCS: 73610; 99284